=== PATIENT | female | born 1940 | race Caucasian/White ===

== ENCOUNTER 2019-03-28 14:38 | Emergency (ER) | payer MEDICARE ==
--- NOTE | 2019-03-28 14:55 | ED ---
Laceration/Wound HPI - HPI Summary HPI Summary: This patient is a 78 year old female presenting to [facility] with a chief complaint of head laceration after the fall. She states she was reaching over to get her walker when she fell and hit her head on a night stand. EMS states it caused a laceration to the parietal/occipital region in the back of the had, which was actively bleeding and they were able to control it. She reports headache. She rates her pain 8/10 in severity. She is not on blood thinners. - History of Current Complaint Stated Complaint: FALL HEAD INJURY Time Seen by Provider: 03/28/19 14:48 Hx Obtained From: Patient, EMS Hx Last Menstrual Period: N/A Mechanism of Injury: Sharp/Blunt Trauma Onset/Duration: Lasting Minutes Pain Intensity: 8 Pain Scale Used: 0-10 Numeric - Additional Pertinent History Primary Care Physician: JULISSA - Allergy/Home Medications Allergies/Adverse Reactions: Allergies Allergy/AdvReac Type Severity Reaction Status Date / Time No Known Allergies Allergy Verified 12/14/15 09:34 PMH/Surg Hx/FS Hx/Imm Hx Endocrine/Hematology History: Reports: Hx Anticoagulant Therapy, Hx Diabetes, Hx Thyroid Disease Cardiovascular History: Reports: Hx Angina, Hx Auto Implanted Cardiovert Defib, Hx Embolism - Bilateral PE's, Hx Hypercholesterolemia, Hx Hypertension, Hx Pacemaker/ICD, Other Cardiovascular Problems/Disorders - CHOLESTEROL CONTROL WITH MEDS Denies: Hx Coronary Artery Disease, Hx Myocardial Infarction, Hx Valvular Heart Disease Respiratory History: Reports: Hx Pneumonia, Hx Pulmonary Embolism Denies: Hx Asthma, Hx Chronic Obstructive Pulmonary Disease (COPD) GI History: Reports: Hx Gastroesophageal Reflux Disease History: Reports: Hx Kidney Infection - HX OF, Hx Kidney Stones, Hx Renal Disease - STONES, Other Problems/Disorders - bladder surgery Musculoskeletal History: Reports: Hx Arthritis, Hx Back Problems, Hx Orthopedic Injury - left knee replacement, Other Musculoskeletal History - right knee replacement Sensory History: Reports: Hx Contacts or Glasses Denies: Hx Hearing Aid Opthamlomology History: Reports: Hx Contacts or Glasses Psychiatric History: Reports: Hx Depression - Cancer History Hx Chemotherapy: No Hx Radiation Therapy: No - Surgical History Surgery Procedure, Year, and Place: PACEMAKER 2011, KNEE SURGERY 2006- BILATERAL , HYSTERECTOMY, BLADDER Hx Anesthesia Reactions: No - Immunization History Date of Influenza Vaccine: 2012 Infectious Disease History: No Infectious Disease History: Denies: Traveled Outside the [place] in Last 30 Days - Family History Known Family History: Positive: Unknown, Diabetes - Social History Alcohol Use: None Hx Substance Use: No Substance Use Type: Reports: None Hx Tobacco Use: No Smoking Status (MU): Never Smoked Tobacco Have You Smoked in the Last Year: No Review of Systems Negative: Fever Positive: Other - Head laceration Positive: Headache All Other Systems Reviewed And Are Negative: Yes Physical Exam - Summary Physical Exam Summary: VITAL SIGNS: Reviewed. GENERAL: Patient is a well-developed and nourished FEMALE who is lying comfortable in the stretcher. Patient is not in any acute respiratory distress. HEAD AND FACE: No signs of trauma. No ecchymosis, hematomas or skull depressions. No sinus tenderness. EYES: PERRLA, EOMI x 2, No injected conjunctiva, no nystagmus. EARS: Hearing grossly intact. Ear canals and tympanic membranes are within normal limits. MOUTH: Oropharynx within normal limits. NECK: Supple, trachea is midline, no adenopathy, no JVD, no carotid bruit, no c- spine tenderness, neck with full ROM. CHEST: Symmetric, no tenderness at palpation. LUNGS: Clear to auscultation bilaterally. No wheezing or crackles. CVS: Regular rate and rhythm, S1 and S2 present, no murmurs or gallops appreciated. ABDOMEN: Soft, non-tender. No signs of distention. No rebound, no guarding, and no masses palpated. Bowel sounds are normal. EXTREMITIES: FROM in all major joints, no edema, no cyanosis or clubbing. NEURO: Alert and oriented x 3. No acute neurological deficits. Speech is normal and follows commands. SKIN: Dry and warm. 3.5 cm head laceration in the occipital region. Triage Information Reviewed: Yes Vital Signs On Initial Exam: Initial Vitals Temp Pulse Resp BP Pulse Ox 97.9 F 90 16 160/92 94 03/28/19 14:46 03/28/19 14:46 03/28/19 14:46 03/28/19 14:46 03/28/19 14:46 Vital Signs Reviewed: Yes Procedures - Sedation Patient Received Moderate/Deep Sedation with Procedure: No - Laceration/Wound Repair 1 Location: head Length, Depth and Shape: 3.5 cm Closure: Michael #__ - 10 Diagnostics - Vital Signs Vital Signs Temp Pulse Resp BP Pulse Ox 03/28/19 14:46 97.9 F 90 16 160/92 94 - Laboratory Lab Statement: Any lab studies that have been ordered have been reviewed, and results considered in the medical decision making process. - CT Brain CT Interpretation Completed By: Radiologist Summary of CT Findings: No acute intracranial abnormality. ED Provider has reviewed this report. Laceration Repair Course/Dx - Course Assessment/Plan: This patient is a 78 year old female presenting to [facility] with a chief complaint of head laceration after the fall. She states she was reaching over to get her walker when she fell and hit her head on a night stand. EMS states it caused a laceration to the parietal/occipital region in the back of the had, which was actively bleeding and they were able to control it. She reports headache. She rates her pain 8/10 in severity. She is not on blood thinners. Head CT IMPRESSION: No CT evidence of acute intracranial abnormality, traumatic or otherwise.. Laceration was repaired. No complications. Tetanus booster was given. At this point, I discussed all the findings and test results with the patient. Patient was instructed to return to the emergency room immediately if any of the symptoms return or worsen. Patient understands and agrees. Neurological exam before discharge: Patient is alert and oriented x 3. No acute neurological deficits. Patient's vital signs are stable. Patient is to follow up with CPP in the next 2 3 days. They understand and agree. The plan of care was discussed with the patient and patient understands and agrees with the plan of care. All questions were answered at patient satisfaction. There were no further complaints or concerns. - Clinical Impression Provider Diagnoses: Laceration of head Discharge ED - Sign-Out/Discharge Documenting (check all that apply): Patient Departure - Discharge - Discharge Plan Condition: Stable Disposition: HOME Patient Education Materials: Laceration (ED) Referrals: Johnny Eddy MD [Primary Care Provider] - Additional Instructions: Get your michael removed in 7-10 days. Do not take a shower for 48 hours. - Billing Disposition and Condition Condition: STABLE Disposition: Home - Attestation Statements Document Initiated by Scribe: Yes Documenting Scribe: Louis Saleh Provider For Whom Scribe is Documenting (Include Credential): Jones Boyd MD Scribe Attestation: Louis Ku, scribed for Jones Boyd MD on 03/28/19 at 1833. Scribe Documentation Reviewed: Yes Provider Attestation: The documentation as recorded by the scribe, Louis Saleh accurately reflects the service I personally performed and the decisions made by me, Jones Boyd MD Status of Scribe Document: Viewed
[2019-03-28] MEDS ORDERED: Tetan/Diph/Pertus SYR(Tdap)* 0.5 ML SYR(BOOSTRIX) use SYR contains LATEX IM ONE (15:01)
--- OUTSIDE RECORDS SUMMARY | 2019-03-28 15:30 | XMS REPORT | Continuity of Care Document ---
:1940 External Reference #:[id number] Author Name Rakel Case N.P. (transmitted by agent of provider Ayesha Fajardo) Address [address] [place] [address] Care Team Providers Name Role Phone Johnny Eddy MD - Family Medicine Care Team Information Soaker Hides Problems Active Problems Provider Date Complete atrioventricular block Nia Couch M.D. Onset: 05/11/2014 Cardiac pacemaker in situ Nia Couch M.D. Onset: 05/11/2014 Type 2 diabetes mellitus Nia Couch M.D. Onset: 05/11/2014 Paroxysmal supraventricular tachycardia Nia Couch M.D. Onset: 05/11/2014 Sinus node dysfunction Nia Couch M.D. Onset: 06/13/2018 Supraventricular premature beats Nia Couch M.D. Onset: 06/19/2016 Paroxysmal atrial fibrillation Nia Couch M.D. Onset: 06/19/2016 Social History Type Date Description Comments Sex Unknown Tobacco Use Start: Unknown Never Smoked Cigarettes Smoking Status Reviewed: 03/05/19 Never Smoked Cigarettes ETOH Use Denies alcohol use Tobacco Use Start: Unknown Patient has never smoked Recreational Drug Use Denies Drug Use Exercise Type/Frequency Exercises sporadically go for walks Allergies, Adverse Reactions, Alerts Description No Known Drug Allergies Medications Active Medications SIG Qnty Indications Ordering Date Provider Fenofibrate 1 tablet po at Johnny Eddy, 07/05/2017 160mg Tablets bedtime Magnesium one tab every 30tabs Charles Martell 07/26/2016 400mg Tablets day. Lucian Cantrell, [facility] Sotalol HCL 1 tab by mouth 180tabs I47.1 Nia Couch, 02/16/2016 80mg Tablets twice a day Lucian Pantoprazole Sodium 1 by mouth once 30tabs Angela Santana 03/05/2012 40mg a day Lucian Ambrosio DR Levothyroxine Sodium 1 by mouth every 90tabs Unknown day 112mcg Tablets Tylenol OTC 325mg 1 tablet Unknown po prn Farxiga 1 by mouth every 30tabs Unknown 10mg Tablets day Glipizide take 1 po three Unknown 5mg Tablets times daily Gabapentin take 1 capsule Unknown 100mg Capsules by mouth twice a day Meclizine HCL 1 po bid Johnny Eddy, 12.5mg MD Tablets Metformin HCL ER 2 po daily Johnny Eddy, 500mg MD Tablets ER 24HR Celecoxib 1 cap po daily Johnny Eddy, 200mg Capsules Am Medications Administered in Office Medication SIG Qnty Indications Ordering Provider Date Inj, Regadenoson, 0.1 MG Rubén Cramer M.D. 09/11/2013 Injection Technetium TC 99M Tetrofosmin, Rubén Cramer M.D. 09/11/2013 Per Unit Dose Up To 40 Millicuries Injection Immunizations Description No Information Available Vital Signs Date Vital Result Comment 03/05/2019 11:14am Height 64.5 inches 5'4.50" Heart Rate 84 /min L radial BP Systolic 125 mmHg L arm, large cuff BP Diastolic 85 mmHg L arm, large cuff BP Systolic Standing 110 mmHg L arm, large cuff BP Diastolic Standing 90 mmHg L arm, large cuff Respiratory Rate 16 /min Ejection Fraction 55-60% 07/26/2014 06/13/2018 12:52pm Height 64.5 inches 5'4.50" Weight 198.00 lb with shoes BP Systolic Sitting 130 mmHg Lue reg cuff BP Diastolic Sitting 88 mmHg Lue reg cuff BP Systolic Standing 130 mmHg Lue reg cuff BP Diastolic Standing 90 mmHg Lue reg cuff BMI (Body Mass Index) 33.5 kg/m2 Results Description No Information Available Procedures Date Code Description Status 03/05/2019 60152 Pace Maker Migel W/Iterative Adjment Dual Lead Completed 03/05/2019 06967 EKG Tracing & Interpretation Completed Medical Devices Description No Information Available Encounters Description No Information Available Assessments Date Code Description Provider 03/05/2019 I49.5 Sick sinus syndrome Rakel Case N.P. 03/05/2019 I49.5 Sick sinus syndrome Ica Pacer Schedule 03/05/2019 Z95.0 Presence of cardiac pacemaker Rakel Case N.P. 03/05/2019 Z95.0 Presence of cardiac pacemaker Ica Pacer Schedule 03/05/2019 I44.2 Atrioventricular block, complete Rakel Case N.P. 03/05/2019 I48.0 Paroxysmal atrial fibrillation Rakel Case N.P. 03/05/2019 R01.1 Cardiac murmur, unspecified Rakel Case N.P. Plan of Treatment Future Appointment(s):09/15/2019 11:15 am - Nia Couch M.D. at [facility]09/15/2019 10:30 am - Ica Pacer Schedule at [facility]03/16/2019 10:00 am - Traveling ECHO 2 at [facility]2018 - Rakel Case N.P.I49.5 Sick sinus [id number] Presence of cardiac pacemakerRecommendations:You have 5 years left on your pacemaker.I44.2 Atrioventricular block, [id number] Paroxysmal atrial fibrillationFollow up: OV 6mo LS w/ PO priorRecommendations:You are in the regular rhythm and no episodes of afib on your pacemaker. Continue sotalol. No bloodthinner because of falls. Triglycerides have improved but are still elevated at 197. Try to decrease carbohydrates in your diet. LDL cholesterol looks good for primary prevention.R01.1 Cardiac murmur, unspecifiedNew Orders:Echocardiogram, Ordered: 03/05/19Recommendations:We will call with echo results. Functional Status Description No Information Available Mental Status Description No Information Available Referrals Description No Information Available
--- OUTSIDE RECORDS SUMMARY | 2019-03-28 15:30 | XMS REPORT ---
:1940 Author Organization [facility] Care Team Providers Name Role Phone Unavailable Unavailable Unavailable Problems Condition Condition Condition Status Onset Resolution Last Treating Comments Name Details Category Date Date Treatment Clinician Date Pain frequent Pain Mgmt Active Adeline pain 07-11 (Darlene) 08:30: Blackmon [id number] Respiratory dyspnea Respirator Active Adeline present y 07-11 (Darlene) 08:30: Blackmon [id number] Endo/Marcello glucose Endo/Marcello Active Adeline testing 07-11 (Darlene) dependence 08:30: [id number] Endo/Marcello diabetic Endo/Marcello Active Adeline foot care 07-11 (Darlene) 08:30: Blackmon [id number] Endo/Marcello anti-coagul Endo/Marcello Active Adeline ation 07-11 (Darlene) therapy 08:30: Blackmon [id number] Sensory impaired Sensory Active Adeline hearing 07-11 (Darlene) 08:30: Blackmon [id number] Integument skin Integument Active Adeline integrity 07-11 (Darlene) risk 08:30: [id number] Nutrition nutritional Nutrition Resolve 2018-12-12 Adeline restriction d 07-11 10:13:00 (Darlene) s 08:30: Blackmon [id number] Elimination urinary Eliminatio Resolve 2018-12-12 Adeline incontinenc n d 07-11 10:13:00 (Darlene) e 08:30: Blackmon [id number] Neuro confusion Neuro/Emot Active Adeline present ion 07-11 (Darlene) 08:30: Blackmon [id number] Neuro depressive Neuro/Emot Active Adeline feelings ion 07-11 (Darlene) present 08:30: Blackmon [id number] Activity ADL Activity Active Adeline assistance 07-11 (Darlene) required 08:30: Blackmon [id number] Activity self-care Activity Active Adeline deficit 07-11 (Darlene) 08:30: Blackmon [id number] Safety fall risk Safety Resolve 2018-07-24 Adeline factor d 07-11 09:50:00 (Darlene) present 08:30: [id number] Safety risk for Safety Resolve 2018-07-24 Adeline hospitaliza d 07-11 09:50:00 (Darlene) tion 08:30: [id number] Safety can be left Safety Active Adeline alone for 07-11 (Darlene) only short 08:30: Blackmon [id number] Medication oral med Meds Active Adeline assistance 07-11 (Darlene) required 08:30: Blackmon [id number] Musculoskel transfer Musculoske Active Adeline etal assistance letal 07-11 (Darlene) required 08:30: Blackmon [id number] Musculoskel requires Musculoske Active Adeline etal human letal 07-11 (Darlene) assist to 08:30: Blackmon leave home [id number] Diagnoses knowledge/s Diagnoses Active Obdulio leggett 07-11 Mihai deficit: pt 13:00: [id number] ROM ROM PT: ROM Resolve 2018-07-24 Obdulio deficit: LE d 07-11 09:50:00 Mihai 13:00: [id number] ROM knowledge/s PT: ROM Resolve 2018-07-24 Obdulio kill d 07-11 09:50:00 Mihai deficit LE: 13:00: [id number] pt 00 Bed mobility/tr PT/OT: Bed Resolve 2018-07-24 bOdulio Mobility/Tr ansfer Mobility/T d 07-11 09:50:00 Mihai saldanafer device ransfer 13:00: [id number] present 00 Balance/End balance/operations manager/coordinator PT/OT: Resolve 2018-07-24 Obdulio urance rdination Balance/En d 07-11 09:50:00 Kobziewicz deficit durance 13:00: [id number] OT: Self self-care OT: Resolve 2018-07-24 Obdulio Care deficit Self-Care d 07-11 09:50:00 Mihai 13:00: [id number] 00 Gait/Locomo gait PT/OT: Resolve 2018-07-24 Obdulio tion assistive Gait/Locom d 07-11 09:50:00 Mihai problems device otion 13:00: [id number] present 00 Gait/Locomo gait PT/OT: Resolve 2018-07-24 Obdulio tion deficit Gait/Locom d 07-11 09:50:00 Kobkingaewicz problems otion 13:00: [id number] Safety risk for Safety [facility] Gato tion 10:30: [id number] 00 Elimination diarrhea Eliminatio Resolve 2018-12-12 Khloe n d 723 10:13:00 [place] 15:15: [id number] Medication knowledge/s Meds Active Leonora leggett 8-16 [facility] deficit: cg 10:00: e 00 [id number] Elimination urinary Eliminatio Resolve 2018-042019-02-06 Sylvia incontinenc n d 0-01 12:18:00 Saucedo e 13:00: [id number] 00 Safety fall risk Safety Active 2018-04 Sylvia factor 0- Saucedo present 13:00: [id number] 00 Allergies, Adverse Reactions, Alerts Allergy Allergy Status Severity Reaction(s) Onset Inactive Treating Comments Name Type Date Date Clinician Unknown None Active Unknown None Unknown No Known Allergies For This Patient Medications Ordered Filled Start Stop Current Ordering Indication Dosage Frequency Signature Comments Components Medication Medication Date Date Medication? Clinician (SIG) Name Name levothyroxi levothyroxi 2018- No Breiman Unknown Unknown ne 112 mcg ne 112 mcg 07-11 Johnny PAZ capsule capsule pantoprazol pantoprazol No Breiman Unknown Unknown e 40 mg e 40 mg 07-11 Johnny PAZ tablet,aurelia tablet,aurelia yed release yed release metFORMIN metFORMIN 2018- No Breiman Unknown Unknown 500 mg 500 mg 07-11 Johnny PAZ tablet tablet fenofibrate fenofibrate 2018- No Breiman Unknown Unknown 160 mg 160 mg 07-11 ,Johnny tablet tablet magnesium magnesium 2018- No Breiman Unknown Unknown oxide 400 oxide 400 07-11 Johnny PAZ mg (241.3 mg (241.3 mg mg magnesium) magnesium) tablet tablet Glucotrol 5 Glucotrol 5 2018- No Breiman Unknown Unknown mg tablet mg tablet 07-11 Johnny PAZ sotalol 80 sotalol 80 2018- No Wagoner Unknown Unknown mg tablet mg tablet 07-11 Nia PAZ gabapentin gabapentin No Breiman Unknown Unknown 100 mg 100 mg 07-11 Johnny PAZ capsule capsule meclizine meclizine No Breiman Unknown Unknown 12.5 mg 12.5 mg 07-11 Johnny PAZ tablet tablet Farxiga 10 Farxiga 10 No Breiman Unknown Unknown mg tablet mg tablet 07-11 Johnny PAZ celecoxib celecoxib No Breiman Unknown Unknown 200 mg 200 mg 07-11 Johnny PAZ capsule capsule sotalol 80 sotalol 80 No Wagoner Unknown Unknown mg tablet mg tablet 07-11 Nia PAZ levothyroxi levothyroxi No Breiman Unknown Unknown ne 125 mcg ne 125 mcg 08-11 Johnny PAZ tablet tablet metFORMIN metFORMIN 2018- No Breiman Unknown Unknown 500 mg 500 mg 08-11 Johnny PAZ tablet tablet fenofibrate fenofibrate No Breiman Unknown Unknown 160 mg 160 mg 08-11 Johnny PAZ tablet tablet magnesium magnesium No Breiman Unknown Unknown 400 mg (as 400 mg (as 08-11 Johnny PAZ magnesium magnesium oxide) oxide) capsule capsule Glucotrol 5 Glucotrol 5 No Breiman Unknown Unknown mg tablet mg tablet 08-11 Johnny PAZ Pepto-Bismo Pepto-Bismo No Breiman Unknown Unknown l 262 mg l 262 mg 11-04 Johnny PAZ tablet tablet metFORMIN metFORMIN 2018- Yes Breiman Unknown Unknown 500 mg 500 mg 01-12 Johnny PAZ tablet tablet metFORMIN metFORMIN Yes Breiman Unknown Unknown 500 mg 500 mg 01-12 Johnny PZA tablet tablet Vital Signs Vital Name Observation Time Observation Value Comments SYSTOLIC mm[Hg] 2019-02-06 18:08:31 118 mm[Hg] mm[Hg] Method: Sit SYSTOLIC mm[Hg] 2018-07-11 18:05:01 122 mm[Hg] mm[Hg] Method: Stand DIASTOLIC mm[Hg] 2019-02-06 18:08:31 84 mm[Hg] mm[Hg] Method: Sit DIASTOLIC mm[Hg] 2018-07-11 18:05:01 82 mm[Hg] mm[Hg] Method: Stand PULSE 2019-02-06 18:08:31 82 /min /min RESP RATE 2019-02-06 18:08:31 18 /min /min TEMP 2019-02-06 18:08:31 99.0 [degF] Procedures This patient has no known procedures. Results This patient has no known results.
--- OUTSIDE RECORDS SUMMARY | 2019-03-28 15:30 | XMS REPORT ---
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 08:30: [id number] Endo/Marcello diabetic Endo/Marcello Active Adeline foot care 07-11 (Darlene) 08:30: Blackmon [id number] Endo/Marcello anti-coagul Endo/Marcello Active Adeline ation 07-11 (Darlene) therapy 08:30: Blackmon [id number] Sensory impaired Sensory Active Adeline hearing 07-11 (Darlene) 08:30: Blackmon [id number] Integument skin Integument Active Adeline integrity 07-11 (Darlene) risk 08:30: [id number] Nutrition nutritional Nutrition Resolve 2018-12-12 Adeline restriction d 07-11 10:13:00 (Darlene) s 08:30: Blackmon [id number] Elimination urinary Eliminatio Resolve 2018-12-12 Adeline incontinenc n d 07-11 10:13:00 (Darlene) e 08:30: Blackmon [id number] Neuro confusion Neuro/Emot Active Adeline present ion 07-11 (Darlene) 08:30: Blackmon [id number] Neuro depressive Neuro/Emot Active Adeline feelings ion 07-11 (Darlene) present 08:30: Blackmon [id number] Activity ADL Activity Active Adeline assistance 07-11 (Darlene) required 08:30: Blackmon [id number] Activity self-care Activity Active Adeline deficit 07-11 (Darlene) 08:30: Blackmon [id number] Safety fall risk Safety Resolve 2018-07-24 Adeline factor d 07-11 09:50:00 (Darlene) present 08:30: [id number] Safety risk for Safety Resolve 2018-07-24 Adeline hospitaliza d 07-11 09:50:00 (Darlene) tion 08:30: [id number] Safety can be left Safety Active Adeline alone for 07-11 (Darlene) only short 08:30: Blackmon [id number] Medication oral med Meds Active Adeline assistance 07-11 (Darlene) required 08:30: Blackmon [id number] Musculoskel transfer Musculoske Active Adeline etal assistance letal 07-11 (Darlene) required 08:30: Blackmon [id number] Musculoskel requires Musculoske Active Adeline etal human letal 07-11 (Darlene) assist to 08:30: Blackmon leave home [id number] Diagnoses knowledge/s Diagnoses Active Obdulio leggett 07-11 Mihai deficit: pt 13:00: [id number] ROM ROM PT: ROM Resolve 2018-07-24 Obdulio deficit: LE d 07-11 09:50:00 Mihai 13:00: [id number] 00 ROM knowledge/s PT: ROM Resolve 2018-07-24 Obdulio kill d 07-11 09:50:00 Mihai deficit LE: 13:00: [id number] pt 00 Bed mobility/tr PT/OT: Bed Resolve 2018-07-24 Obdulio Mobility/Tr ansfer Mobility/T d 07-11 09:50:00 Mihai saldanafer device ransfer 13:00: [id number] present 00 Balance/End balance/school community relations coordinator PT/OT: Resolve 2018-07-24 Obdulio urance rdination Balance/En d 07-11 09:50:00 Mihai deficit durance 13:00: [id number] 00 OT: Self self-care OT: Resolve 2018-07-24 Obdulio Care deficit Self-Care d 07-11 09:50:00 Mihai 13:00: [id number] Gait/Locomo gait PT/OT: Resolve 2018-07-24 Obdulio tion assistive Gait/Locom d 07-11 09:50:00 Mihai problems device otion 13:00: [id number] present 00 Gait/Locomo gait PT/OT: Resolve 2018-07-24 Obdulio tion deficit Gait/Locom d 07-11 09:50:00 [place] problems otion 13:00: [id number] Safety risk for Safety Active Khloe salinas 07-25 Gato tion 10:30: [id number] 00 Elimination diarrhea Eliminatio Resolve 2018-12-12 Khloe marcus 7 10:13:00 [place] 15:15: [id number] 00 Medication knowledge/s Meds Active Leonora leggett [facility] deficit: cg 10:00: e 00 [id number] Elimination urinary Eliminatio Resolve 2018-042019-02-06 Sylvia incontinenc n d 0- 12:18:00 [place] e 13:00: [id number] 00 Safety fall risk Safety Active 2018-04 Sylvia factor 0- Saucedo present 13:00: [id number] 00 Elimination urinary Eliminatio Active 2018-04 Khloe incontinenc n -08 Matthew e 12:00: [facility] 00 [id number] Allergies, Adverse Reactions, Alerts Allergy Allergy Status [...] 07-11 Johnny PAZ capsule capsule pantoprazol pantoprazol 2018- No Breiman Unknown Unknown e 40 mg e 40 mg 07-11 Johnny PAZ tablet,aurelia tablet,aurelia yed release yed release metFORMIN metFORMIN 2018- No Breiman Unknown Unknown 500 mg 500 mg 07-11 Johnny PAZ tablet tablet fenofibrate fenofibrate 2018- No Breiman Unknown Unknown 160 mg 160 mg 07-11 Johnny PAZ tablet tablet magnesium magnesium 2018- No Breiman Unknown Unknown oxide 400 oxide 400 07-11 Johnny PZA mg (241.3 mg (241.3 mg mg magnesium) magnesium) tablet tablet Glucotrol 5 Glucotrol 5 2018- No Breiman Unknown Unknown mg tablet mg tablet 07-11 Johnny PAZ sotalol 80 sotalol 80 2018- No Iza Unknown Unknown mg tablet mg tablet 07-11 Nia PAZ gabapentin gabapentin 2018- No Breiman Unknown Unknown 100 mg 100 mg 07-11 Johnny PAZ capsule capsule meclizine meclizine 2018- No Breiman Unknown Unknown 12.5 mg 12.5 mg 07-11 oJhnny PAZ tablet tablet Farxiga 10 Farxiga 10 2019- No Breiman Unknown Unknown mg tablet mg tablet 07-11 Johnny PAZ celecoxib celecoxib 2018- No Breiman Unknown Unknown 200 mg 200 mg 07-11 Johnny PAZ capsule capsule sotalol 80 sotalol 80 2018- No [place] Unknown Unknown mg tablet mg tablet 07-11 Nia PAZ levothyroxi levothyroxi 2018- No Breiman Unknown Unknown ne 125 mcg ne 125 mcg 08-11 Johnny PAZ tablet tablet metFORMIN metFORMIN 2018- No Breiman Unknown Unknown 500 mg 500 mg 08-11 Johnny PAZ tablet tablet fenofibrate fenofibrate 2018- No Breiman Unknown Unknown 160 mg 160 mg 08-11 Johnny PAZ tablet tablet magnesium magnesium 2018- No Breiman Unknown Unknown 400 mg (as 400 mg (as 08-11 Johnny PAZ magnesium magnesium oxide) oxide) capsule capsule Glucotrol 5 Glucotrol 5 2018- No Breiman Unknown Unknown mg tablet mg tablet 08-11 Johnny PAZ Pepto-Bismo Pepto-Bismo 2018- No Breiman Unknown Unknown l 262 mg l 262 mg 11-04 Johnny PAZ tablet tablet metFORMIN metFORMIN 2018- Yes Breiman Unknown Unknown 500 mg 500 mg 01-12 Johnny PAZ tablet tablet metFORMIN metFORMIN 2018- Yes Breiman Unknown Unknown 500 mg 500 mg 01-12 Johnny PAZ tablet tablet Vital Signs Vital Name Observation Time Observation Value Comments SYSTOLIC mm[Hg] 2019-03-06 18:08:59 134 mm[Hg] mm[Hg] Method: Sit SYSTOLIC mm[Hg] 2018-07-11 18:05:01 122 mm[Hg] mm[Hg] Method: Stand DIASTOLIC mm[Hg] 2019-03-06 18:08:59 66 mm[Hg] mm[Hg] Method: Sit DIASTOLIC mm[Hg] 2018-07-11 18:05:01 82 mm[Hg] mm[Hg] Method: Stand PULSE 2019-03-06 18:08:59 78 /min /min RESP RATE 2019-03-06 18:08:59 18 /min /min TEMP 2019-03-06 18:08:59 98.2 [degF] Procedures This patient has no known procedures. Results This patient has no known results.
--- OUTSIDE RECORDS SUMMARY | 2019-03-28 15:30 | XMS REPORT ---
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 08:30: [id number] Endo/Marcello diabetic Endo/Marcello Active Adeline foot care 07-11 (Darlene) 08:30: [id number] Endo/Marcello anti-coagul Endo/Marcello Active Adeline ation 07-11 (Darlene) therapy 08:30: Blackmon [id number] Sensory impaired Sensory Active Adeline hearing 07-11 (Darlene) 08:30: Blackmon [id number] Integument skin Integument Active Adeline integrity 07-11 (Darlene) risk 08:30: [id number] Nutrition nutritional Nutrition Resolve 2018-12-12 Adeline restriction d 07-11 10:13:00 (Darlene) s 08:30: Blackmon [id number] Elimination urinary Eliminatio Resolve 2018-12-12 Adeline incontinenc n d 07-11 10:13:00 (Darlene) e 08:30: Blackmon [id number] Neuro confusion Neuro/Emot Active Adeline present ion 07-11 (Darlene) 08:30: Blackmon [id number] Neuro depressive Neuro/Emot Active Adeline feelings ion 07-11 (Darlene) present 08:30: Blackmon [id number] Activity ADL Activity Active Adeline assistance 07-11 (Darlene) required 08:30: Blackmon [id number] Activity self-care Activity Active Adeline deficit 07-11 (Darlene) 08:30: Blackmon [id number] Safety fall risk Safety Resolve 2018-07-24 Adeline factor d 07-11 09:50:00 (Darlene) present 08:30: [id number] Safety risk for Safety Resolve 2018-07-24 Adeline hospitaliza d 07-11 09:50:00 (Darlene) tion 08:30: [id number] Safety can be left Safety Active Adeline alone for 07-11 (Darlene) only short 08:30: Blackmon [id number] Medication oral med Meds Active Adeline assistance 07-11 (Darlene) required 08:30: Blackmon [id number] Musculoskel transfer Musculoske Active Adeline etal assistance letal 07-11 (Darlene) required 08:30: Blackmon [id number] Musculoskel requires Musculoske Active Adeline etal human letal 07-11 (Darlene) assist to 08:30: Blackmon leave home [id number] Diagnoses knowledge/s Diagnoses Active Obdulio leggett 07-11 Mihai deficit: pt 13:00: [id number] 00 ROM ROM PT: ROM Resolve 2018-07-24 Obdulio deficit: LE d 07-11 09:50:00 Mihai 13:00: [id number] 00 ROM knowledge/s PT: ROM Resolve 2018-07-24 Obdulio kill d 07-11 09:50:00 Mihai deficit LE: 13:00: [id number] pt 00 Bed mobility/tr PT/OT: Bed Resolve 2018-07-24 Obdulio Mobility/Tr ansfer Mobility/T d 07-11 09:50:00 Mihai saldanafer device ransfer 13:00: [id number] present 00 Balance/End balance/clinical coordinator PT/OT: Resolve 2018-07-24 Obdulio urance rdination Balance/En d 07-11 09:50:00 Mihai deficit durance 13:00: [id number] 00 OT: Self self-care OT: Resolve 2018-07-24 Obdulio Care deficit Self-Care d 07-11 09:50:00 Mihai 13:00: [id number] 00 Gait/Locomo gait PT/OT: Resolve 2018-07-24 Obdulio tion assistive Gait/Locom d 07-11 09:50:00 Mihai problems device otion 13:00: [id number] present 00 Gait/Locomo gait PT/OT: Resolve 2018-07-24 Obdulio tion deficit Gait/Locom d 07-11 09:50:00 [place] problems otion 13:00: [id number] Safety risk for Safety Active Khloe salinas 12 Gato tion 10:30: [id number] 00 Elimination diarrhea Eliminatio Resolve 2018-12-12 Khloe acuna d 7-23 10:13:00 [place] 15:15: [id number] 00 Medication knowledge/s Meds Active Leonora leggett [facility] deficit: cg 10:00: e 00 [id number] Elimination urinary Eliminatio Resolve 2018-042019-02-06 Sylvia incontinenc n d 0- 12:18:00 Sau[place]o e 13:00: [id number] 00 Safety fall risk Safety Active 2018-04 Sylvia factor 0- Saucedo present 13:00: [id number] 00 Elimination urinary Eliminatio Active 2018-04 Khloe incontinenc n -08 Matthew e 12:00: [facility] 00 [id number] Allergies, Adverse Reactions, Alerts Allergy Allergy Status Severity Reaction(s) Onset Inactive Treating Comments Name Type Date Date Clinician Unknown None Active Unknown None Unknown No Known Allergies For This Patient Medications Ordered Filled Start Stop Current Ordering Indication Dosage Frequency Signature Comments Components Medication Medication Date Date Medication? Clinician (SIG) Name Name levothyroxi levothyroxi 2019- No Breiman Unknown Unknown ne 112 mcg [...] capsule capsule sotalol 80 sotalol 80 No [place] Unknown Unknown mg tablet mg tablet 07-11 [...] 11-04 Johnny PAZ tablet tablet metFORMIN metFORMIN 2019-0 2019- Yes Breiman Unknown Unknown 500 mg 500 mg 01-12 Johnny PAZ tablet tablet metFORMIN metFORMIN Yes Breiman Unknown Unknown 500 mg 500 mg 01-12 ,Johnny tablet tablet Vital Signs Vital Name Observation Time Observation Value Comments SYSTOLIC mm[Hg] 2019-03-01 18:08:54 112 mm[Hg] mm[Hg] Method: Sit SYSTOLIC mm[Hg] 2018-07-11 18:05:01 122 mm[Hg] mm[Hg] Method: Stand DIASTOLIC mm[Hg] 2019-03-01 18:08:54 74 mm[Hg] mm[Hg] Method: Sit DIASTOLIC mm[Hg] 2018-07-11 18:05:01 82 mm[Hg] mm[Hg] Method: Stand PULSE 2019-03-01 18:08:54 84 /min /min RESP RATE 2019-03-01 18:08:54 18 /min /min TEMP 2019-03-01 18:08:54 98.6 [degF] Procedures This patient has no known procedures. Results This patient has no known results.
--- OUTSIDE RECORDS SUMMARY | 2019-03-28 15:30 | XMS REPORT ---
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 08:30: [id number] Endo/Marcello diabetic Endo/Marcello Active Adeline foot care 07-11 (Darlene) 08:30: [id number] Endo/Marcello anti-coagul Endo/Marcello Active Adeline ation 07-11 (Darlene) therapy 08:30: Blackmon [id number] Sensory impaired Sensory Active Adeline hearing 07-11 (Darlene) 08:30: Blackmon [id number] Integument skin Integument Active Adeline integrity 07-11 (Darlene) risk 08:30: [id number] Nutrition nutritional Nutrition Resolve 2018-12-12 Adeline restriction d 07-11 10:13:00 (Darlene) s 08:30: Blackmon [id number] Elimination urinary Eliminatio Resolve 2018-12-12 Adeline incontinenc n d 07-11 10:13:00 (Darlene) e 08:30: Blackmon [id number] Neuro confusion Neuro/Emot Active Adeline present ion 07-11 (Darlene) 08:30: Blackmon [id number] Neuro depressive Neuro/Emot Active Adeline feelings ion 07-11 (Darlene) present 08:30: Blackmon [id number] Activity ADL Activity Active Adeline assistance 07-11 (Darlene) required 08:30: Blackmon [id number] Activity self-care Activity Active Adeline deficit 07-11 (Darlene) 08:30: Blackmon [id number] Safety fall risk Safety Resolve 2018-07-24 Adeline factor d 07-11 09:50:00 (Darlene) present 08:30: [id number] Safety risk for Safety Resolve 2018-07-24 Adeline hospitaliza d 07-11 09:50:00 (Darlene) tion 08:30: [id number] Safety can be left Safety Active Adeline alone for 07-11 (Darlene) only short 08:30: Blackmon [id number] Medication oral med Meds Active Adeline assistance 07-11 (Darlene) required 08:30: Blackmon [id number] Musculoskel transfer Musculoske Active Adeline etal assistance letal 07-11 (Darlene) required 08:30: Blackmon [id number] Musculoskel requires Musculoske Active Adeline etal human letal 07-11 (Darlene) assist to 08:30: Blackmon leave home [id number] Diagnoses knowledge/s Diagnoses Active Obdulio leggett 07-11 Mihai deficit: pt 13:00: [id number] ROM ROM PT: ROM Resolve 2018-07-24 Obdulio deficit: LE d 07-11 09:50:00 Mihai 13:00: [id number] 00 ROM knowledge/s PT: ROM Resolve 2018-07-24 Obdulio kill d 07-11 09:50:00 Mihai deficit LE: 13:00: [id number] pt 00 Bed mobility/tr PT/OT: Bed Resolve 2018-07-24 Obdulio Mobility/Tr ansfer Mobility/T d 07-11 09:50:00 Mihai saldanafer device ransfer 13:00: [id number] present 00 Balance/End balance/wedding coordinator PT/OT: Resolve 2018-07-24 Obdulio urance rdination Balance/En d 07-11 09:50:00 Mihai deficit durance 13:00: [id number] 00 OT: Self self-care OT: Resolve 2018-07-24 Obdulio Care deficit Self-Care d 07-11 09:50:00 Mihai 13:00: [id number] 00 Gait/Locomo gait PT/OT: Resolve 2018-07-24 Obdulio tion assistive Gait/Locom d 07-11 09:50:00 Mihai problems device otion 13:00: [id number] present 00 Gait/Locomo gait PT/OT: Resolve 2018-07-24 Obdulio tion deficit Gait/Locom d 07-11 09:50:00 [place] problems otion 13:00: [id number] 00 Safety risk for Safety Active Khloe salinas 07-25 Gato tion 10:30: [id number] 00 Elimination diarrhea Eliminatio Resolve 2018-12-12 Khloe marcus 7 10:13:00 [place] 15:15: [id number] 00 Medication knowledge/s Meds Active Leonora leggett 816 [facility] deficit: cg 10:00: e 00 [id number] Elimination urinary Eliminatio Resolve 2018-042019-02-06 Sylvia incontinenc n d 0- 12:18:00 Saucedo e 13:00: [id number] 00 Safety fall risk Safety Active 2018-04 Sylvia factor 0- Saucedo present 13:00: [id number] 00 Elimination urinary Eliminatio Active 2018-04 Khloe incontinenc n -08 Matthew e 12:00: [facility] 00 [id number] Allergies, Adverse Reactions, Alerts Allergy Allergy Status [...] capsule sotalol 80 sotalol 80 2018- No [place] Unknown Unknown mg tablet mg tablet 07-11 [...]
[2019-03-28] MEDS ORDERED: Lidocaine 2% w/ EPI 1:200,000* 20 ML SDV VIAL ONE (17:34)
[2019-03-28 18:03] VITALS: BP 153/91
== END 2019-03-28 18:00 | disposition home or self-care (01) ==
LOC: ED 14:38
DX: S01.91XA Laceration without foreign body of unspecified part of head, initial encounter (principal); W18.39XA Other fall on same level, initial encounter; Y92.002 Bathroom of unspecified non-institutional (private) residence as the place of occurrence of the external cause; E11.9 Type 2 diabetes mellitus without complications; E07.9 Disorder of thyroid, unspecified; E78.00 Pure hypercholesterolemia, unspecified; I10 Essential (primary) hypertension; K21.9 Gastro-esophageal reflux disease without esophagitis; F32.9 Major depressive disorder, single episode, unspecified; Z90.710 Acquired absence of both cervix and uterus; Z95.0 Presence of cardiac pacemaker; Z79.899 Other long term (current) drug therapy
CPT/HCPCS: 12013; 70450; 99282

== ENCOUNTER 2020-10-26 16:46 | Inpatient (IN) ==
[2020-10-27] MEDS ORDERED: Metoclopramide 5 MG/ML VIAL (10 mg) IV ONE (01:15)
[2020-10-27] MEDS ORDERED: Metoprolol Tartrate 5 mg VIAL 5 ml VIAL (1 mg/ml) IV ONE (01:18)
[2020-10-27] MEDS: Enoxaparin 40 MG/0.4 ML SYR SUBCUT SCH (01:29)
[2020-10-27 05:48] LABS: ABS Basophils 0.1 10^3/ul (0-0.2); ABS Eosinophils 0.2 10^3/ul (0-0.6); ABS Lymphocytes 1.7 10^3/ul (1.0-4.8); ABS Monocytes 0.8 10^3/ul (0-0.8); Eosinophil % 1.7 %; Hematocrit 39 % (35-47); Hemoglobin 13.9 g/dL (12.0-16.0); Lymphocyte % 15.8 %; Mean Corpuscular HGB Conc 35 g/dL (31-36); Mean Corpuscular Hemoglobin 33 pg (27-31); Mean Corpuscular Volume 93 fL (80-97); Mean Platelet Volume 8.9 fL (7.4-10.4); Nucleated Red Blood Cells % 0.1; Platelet Count 248 10^3/uL (150-450); Red Blood Count 4.25 10^6 /uL (3.70-4.87); Red Cell Distribution Width 13 % (10-15); White Blood Count 10.7 10^3/uL (3.5-10.8)
[2020-10-27 06:10] LABS: C Reactive Protein 26.08 mg/L (<8.01); Calcium 8.8 mg/dL (8.6-10.3); EGFR African American 114.8 (>60); EGFR Non-African American 94.9 (>60); Magnesium 1.7 mg/dL (1.9-2.7); Potassium 3.5 mmol/L (3.5-5.0)
[2020-10-27] MEDS: Nystatin TOP POWDER 15 GM BTL TOPICAL SCH ×2 (08:32→22:45)
[2020-10-27] MEDS ORDERED: SITAGLIPTIN 50 MG PO SCH (09:00)
[2020-10-27] MEDS: CMCS:SitaGLIPtin 25mg TAB (NF) 25 MG TAB PO SCH (12:00)
[2020-10-27] MEDS ORDERED: Potassium Chloride LIQUID 20 MEQ/15 ML LIQUID PO ONE (14:49)
[2020-10-27] MEDS ORDERED: Magnesium Sulfate 2 gm BAG 2 GM/50 ML BAG IVPB ONE (14:50)
[2020-10-27] MEDS: Digoxin IV 0.5 MG/2 ML AMP (0.25 MG/ML) IV SLOW PU SCH ×2 (18:37→22:32)
[2020-10-27] MEDS ORDERED: Potassium Chlor 10 meq TAB PO ONE (20:00)
[2020-10-28] MEDS: Digoxin IV 0.5 MG/2 ML AMP (0.25 MG/ML) IV SLOW PU SCH (02:01)
[2020-10-28 07:24] LABS: Calcium 9.2 mg/dL (8.6-10.3); EGFR African American 119.3 (>60); EGFR Non-African American 98.6 (>60); Magnesium 1.8 mg/dL (1.9-2.7); Potassium 4.4 mmol/L (3.5-5.0)
[2020-10-28 07:27] LABS: Digoxin 1.6 ng/ml (0.8-2.0)
[2020-10-28] MEDS ORDERED: Magnesium Sulfate 2 gm BAG 2 GM/50 ML BAG IVPB ONE (08:44)
[2020-10-28] MEDS ORDERED: guaiFENesin 100 mg/5 ml LIQ unit dose cup PO PRN (10:04)
[2020-10-28] MEDS: Enoxaparin 40 MG/0.4 ML SYR SUBCUT SCH (10:11)
[2020-10-28] MEDS: CMCS:SitaGLIPtin 25mg TAB (NF) 25 MG TAB PO SCH (10:12)
[2020-10-28] MEDS: Nystatin TOP POWDER 15 GM BTL TOPICAL SCH ×2 (10:14→20:45)
[2020-10-28 12:55] LABS: ABS Basophils 0.1 10^3/ul (0-0.2); ABS Eosinophils 0.1 10^3/ul (0-0.6); ABS Lymphocytes 0.9 10^3/ul (1.0-4.8); ABS Monocytes 1.4 10^3/ul (0-0.8); ABS Neutrophils 16.1 10^3/ul (1.5-7.7); Eosinophil % 0.4 %; Hematocrit 43 % (35-47); Hemoglobin 15.1 g/dL (12.0-16.0); Lymphocyte % 5.1 %; Mean Corpuscular HGB Conc 35 g/dL (31-36); Mean Corpuscular Hemoglobin 32 pg (27-31); Mean Corpuscular Volume 92 fL (80-97); Mean Platelet Volume 9.1 fL (7.4-10.4); Platelet Count 294 10^3/uL (150-450); Red Cell Distribution Width 13 % (10-15); White Blood Count 18.6 10^3/uL (3.5-10.8)
[2020-10-28] MEDS ORDERED: Piperacillin/Tazobac ADVAN 3.375 GM in NS 0.9% 100 ml BAG 100 ML IV ONE (13:33)
[2020-10-28 13:51] LABS: Activated Partial Thrombo Time 36.9 seconds (26.0-38.0); INR 1.11 (0.86-1.15)
[2020-10-28 13:58] LABS: Albumin 3.9 g/dL (3.2-5.2); Albumin/Globulin Ratio 1.6 (1-3); Calcium 9.2 mg/dL (8.6-10.3); EGFR African American 141.1 (>60); EGFR Non-African American 116.6 (>60); Globulin 2.5 g/dL (2-4); HDL Cholesterol 36.6 mg/dL; Potassium 4.4 mmol/L (3.5-5.0); Total Bilirubin 1.2 mg/dL (0.2-1.0); Total Protein 6.4 g/dL (6.4-8.9)
[2020-10-28 14:00] LABS: Troponin I 0.02 ng/mL (<0.03)
[2020-10-28] MEDS ORDERED: Zosyn per Pharmacy NOTE FOLLOW UP SCH (14:00)
[2020-10-28] MEDS ORDERED: cefTRIAXone 1 gm/50 mL NS BAG 1 GM/50 ML BAG IVPB SCH (14:00)
[2020-10-28 14:04] LABS: HCG Pregnancy 5.13 mIU/mL
[2020-10-28 15:12] LABS: Urine Appearance Cloudy; Urine Bilirubin Negative (Negative); Urine Blood Negative (Negative); Urine Color Yellow; Urine Glucose 3+(>=500 mg/dL) (Negative); Urine Ketones 1+ (Negative); Urine Nitrite Negative (Negative); Urine Protein Negative (Negative); Urine Specific Gravity 1.026 (1.002-1.030); Urine Urobilinogen Negative (Negative)
[2020-10-28] MEDS: ZOSYN 3.375 GM Q8H per EXTENDED INFUSION IV SCH (20:43)
[2020-10-29] MEDS: ZOSYN 3.375 GM Q8H per EXTENDED INFUSION IV SCH ×3 (04:25→21:10)
[2020-10-29 07:28] LABS: Calcium 8.5 mg/dL (8.6-10.3); EGFR African American 126.7 (>60); EGFR Non-African American 104.7 (>60)
[2020-10-29] MEDS: CMCS:SitaGLIPtin 25mg TAB (NF) 25 MG TAB PO SCH (08:26)
[2020-10-29] MEDS: Enoxaparin 40 MG/0.4 ML SYR SUBCUT SCH (08:28)
[2020-10-29 09:16] LABS: ABS Basophils 0.1 10^3/ul (0-0.2); ABS Eosinophils 0.2 10^3/ul (0-0.6); ABS Lymphocytes 1.5 10^3/ul (1.0-4.8); ABS Monocytes 0.9 10^3/ul (0-0.8); ABS Neutrophils 9.6 10^3/ul (1.5-7.7); Eosinophil % 1.7 %; Hematocrit 37 % (35-47); Hemoglobin 13.1 g/dL (12.0-16.0); Lymphocyte % 12.5 %; Mean Corpuscular HGB Conc 35 g/dL (31-36); Mean Corpuscular Hemoglobin 33 pg (27-31); Mean Corpuscular Volume 93 fL (80-97); Mean Platelet Volume 9.4 fL (7.4-10.4); Platelet Count 241 10^3/uL (150-450); Red Cell Distribution Width 13 % (10-15); White Blood Count 12.3 10^3/uL (3.5-10.8)
[2020-10-29] MEDS: Nystatin TOP POWDER 15 GM BTL TOPICAL SCH ×2 (10:24→21:28)
[2020-10-30] MEDS: ZOSYN 3.375 GM Q8H per EXTENDED INFUSION IV SCH ×3 (05:11→20:03)
[2020-10-30 05:37] LABS: Hematocrit 36 % (35-47); Hemoglobin 12.4 g/dL (12.0-16.0); Mean Corpuscular HGB Conc 35 g/dL (31-36); Mean Corpuscular Hemoglobin 32 pg (27-31); Mean Corpuscular Volume 93 fL (80-97); Mean Platelet Volume 8.9 fL (7.4-10.4); Platelet Count 229 10^3/uL (150-450); Red Blood Count 3.84 10^6 /uL (3.70-4.87); Red Cell Distribution Width 13 % (10-15); White Blood Count 11.5 10^3/uL (3.5-10.8)
[2020-10-30] MEDS: Enoxaparin 40 MG/0.4 ML SYR SUBCUT SCH (08:44)
[2020-10-30] MEDS: CMCS:SitaGLIPtin 25mg TAB (NF) 25 MG TAB PO SCH (08:46)
[2020-10-30] MEDS: Nystatin TOP POWDER 15 GM BTL TOPICAL SCH ×2 (08:47→21:59)
[2020-10-31] MEDS: cefTRIAXone 1 gm/50 mL NS BAG 1 GM/50 ML BAG IVPB SCH (03:40)
[2020-10-31 08:21] LABS: Hematocrit 38 % (35-47); Hemoglobin 13.3 g/dL (12.0-16.0); Mean Corpuscular HGB Conc 35 g/dL (31-36); Mean Corpuscular Hemoglobin 32 pg (27-31); Mean Corpuscular Volume 92 fL (80-97); Mean Platelet Volume 8.8 fL (7.4-10.4); Platelet Count 279 10^3/uL (150-450); Red Blood Count 4.11 10^6 /uL (3.70-4.87); Red Cell Distribution Width 13 % (10-15); White Blood Count 8.6 10^3/uL (3.5-10.8)
[2020-10-31] MEDS: Enoxaparin 40 MG/0.4 ML SYR SUBCUT SCH (09:56)
[2020-10-31] MEDS: Nystatin TOP POWDER 15 GM BTL TOPICAL SCH ×2 (09:56→20:49)
[2020-10-31] MEDS: CMCS:SitaGLIPtin 25mg TAB (NF) 25 MG TAB PO SCH (09:56)
[2020-11-01] MEDS: cefTRIAXone 1 gm/50 mL NS BAG 1 GM/50 ML BAG IVPB SCH (04:27)
[2020-11-01 05:37] LABS: Hematocrit 38 % (35-47); Hemoglobin 13.3 g/dL (12.0-16.0); Mean Corpuscular HGB Conc 35 g/dL (31-36); Mean Corpuscular Hemoglobin 33 pg (27-31); Mean Corpuscular Volume 93 fL (80-97); Mean Platelet Volume 9.4 fL (7.4-10.4); Platelet Count 267 10^3/uL (150-450); Red Blood Count 4.08 10^6 /uL (3.70-4.87); Red Cell Distribution Width 13 % (10-15)
[2020-11-01 06:01] LABS: Calcium 9.1 mg/dL (8.6-10.3); Potassium 3.5 mmol/L (3.5-5.0)
[2020-11-01 06:06] LABS: EGFR African American 112.6 (>60); EGFR Non-African American 93.1 (>60)
[2020-11-01 08:45] LABS: Magnesium 1.7 mg/dL (1.9-2.7)
[2020-11-01] MEDS: Enoxaparin 40 MG/0.4 ML SYR SUBCUT SCH (10:18)
[2020-11-01] MEDS: CMCS:SitaGLIPtin 25mg TAB (NF) 25 MG TAB PO SCH (10:18)
[2020-11-01] MEDS: Nystatin TOP POWDER 15 GM BTL TOPICAL SCH ×2 (10:19→20:10)
[2020-11-02] MEDS: cefTRIAXone 1 gm/50 mL NS BAG 1 GM/50 ML BAG IVPB SCH (05:23)
[2020-11-02 08:22] LABS: Hematocrit 37 % (35-47); Hemoglobin 13.2 g/dL (12.0-16.0); Mean Corpuscular HGB Conc 36 g/dL (31-36); Mean Corpuscular Hemoglobin 33 pg (27-31); Mean Corpuscular Volume 91 fL (80-97); Mean Platelet Volume 8.7 fL (7.4-10.4); Platelet Count 262 10^3/uL (150-450); Red Blood Count 4.05 10^6 /uL (3.70-4.87); Red Cell Distribution Width 13 % (10-15); White Blood Count 7.4 10^3/uL (3.5-10.8)
[2020-11-02 08:43] LABS: Albumin 3.5 g/dL (3.2-5.2); Albumin/Globulin Ratio 1.5 (1-3); Globulin 2.3 g/dL (2-4); Potassium 3.5 mmol/L (3.5-5.0); Total Bilirubin 0.3 mg/dL (0.2-1.0); Total Protein 5.8 g/dL (6.4-8.9)
[2020-11-02] MEDS: Enoxaparin 40 MG/0.4 ML SYR SUBCUT SCH (09:00)
[2020-11-02] MEDS: Nystatin TOP POWDER 15 GM BTL TOPICAL SCH ×2 (09:00→20:50)
[2020-11-02] MEDS: CMCS:SitaGLIPtin 25mg TAB (NF) 25 MG TAB PO SCH (09:01)
[2020-11-03] MEDS: cefTRIAXone 1 gm/50 mL NS BAG 1 GM/50 ML BAG IVPB SCH (04:05)
[2020-11-03] MEDS: CMCS:SitaGLIPtin 25mg TAB (NF) 25 MG TAB PO SCH (09:45)
[2020-11-03] MEDS: Enoxaparin 40 MG/0.4 ML SYR SUBCUT SCH (09:46)
[2020-11-03] MEDS: Nystatin TOP POWDER 15 GM BTL TOPICAL SCH ×2 (09:48→21:47)
[2020-11-04] MEDS: CMCS:SitaGLIPtin 25mg TAB (NF) 25 MG TAB PO SCH (10:16)
[2020-11-04] MEDS: Nystatin TOP POWDER 15 GM BTL TOPICAL SCH (10:17)
[2020-11-04] MEDS: Enoxaparin 40 MG/0.4 ML SYR SUBCUT SCH (10:17)
[2020-11-04 12:28] VITALS: BP 140/73
== END 2020-11-04 14:10 | DRG 194 ==
LOC: ED 16:46 → MEDTELE 16:46
PROVIDERS: ADMIT Internal Medicine; ATTEND Internal Medicine

== ENCOUNTER 2021-02-19 18:39 | Observation (INO) ==
[2021-02-19 21:07] LABS: ABS Basophils 0.1 10^3/ul (0-0.2); ABS Eosinophils 0.1 10^3/ul (0-0.6); ABS Lymphocytes 1.5 10^3/ul (1.0-4.8); ABS Monocytes 0.5 10^3/ul (0-0.8); ABS Neutrophils 5.8 10^3/ul (1.5-7.7); Eosinophil % 1.8 %; Hematocrit 46 % (35-47); Hemoglobin 16.3 g/dL (12.0-16.0); Lymphocyte % 18.9 %; Mean Corpuscular HGB Conc 35 g/dL (31-36); Mean Corpuscular Hemoglobin 32 pg (27-31); Mean Corpuscular Volume 90 fL (80-97); Mean Platelet Volume 8.5 fL (7.4-10.4); Platelet Count 276 10^3/uL (150-450); Red Blood Count 5.14 10^6 /uL (3.70-4.87); Red Cell Distribution Width 14 % (10-15)
[2021-02-19 21:19] LABS: Rapid COVID-19 Molecular Undetected (Undetected)
[2021-02-19 21:20] LABS: Influenza A Molecular Negative (Negative); Influenza B Molecular Negative (Negative)
[2021-02-19 21:23] LABS: Albumin 4.1 g/dL (3.2-5.2); Albumin/Globulin Ratio 1.4 (1-3); Calcium 9.6 mg/dL (8.6-10.3); Globulin 2.9 g/dL (2-4); Magnesium 1.9 mg/dL (1.9-2.7); Potassium 3.9 mmol/L (3.5-5.0); Total Bilirubin 1.1 mg/dL (0.2-1.0)
[2021-02-19 21:25] LABS: Troponin I 0.01 ng/mL (<0.03)
[2021-02-19] MEDS ORDERED: NS 0.9% 1000 ml BAG 1,000 ML IV ONE (21:35)
[2021-02-19] MEDS ORDERED: Iodixanol (CONTRAST) 320 MG/ML 100 ML SDV IV ONE (21:41)
[2021-02-20 02:39] LABS: Urine Appearance Turbid; Urine Bilirubin Negative (Negative); Urine Blood 1+ (Negative); Urine Color Yellow; Urine Glucose 3+(>=500 mg/dL) (Negative); Urine Ketones Negative (Negative); Urine Nitrite Negative (Negative); Urine Protein Negative (Negative); Urine Specific Gravity 1.021 (1.002-1.030); Urine Urobilinogen Negative (Negative)
[2021-02-20 02:47] LABS: Urine Bacteria 3+ (Absent); Urine Red Blood Cell 3+(>10/hpf) (Absent); Urine Squamous Epithelial Cell Present (Absent); Urine White Blood Cell 1+(6-10/hpf) (Absent)
[2021-02-20] MEDS ORDERED: cefTRIAXone 1 gm/50 mL NS BAG 1 GM/50 ML BAG IV ONE (03:32)
[2021-02-20] MEDS: Enoxaparin 40 MG/0.4 ML SYR SUBCUT SCH (12:33)
[2021-02-20] MEDS ORDERED: Dextrose 50% Syringe 50 ml 25 GM/50 ML SYRINGE IV PUSH PRN (12:36)
[2021-02-20 13:31] LABS: ABS Basophils 0.1 10^3/ul (0-0.2); ABS Eosinophils 0.2 10^3/ul (0-0.6); ABS Lymphocytes 1.6 10^3/ul (1.0-4.8); ABS Monocytes 0.4 10^3/ul (0-0.8); ABS Neutrophils 5.2 10^3/ul (1.5-7.7); Eosinophil % 2.5 %; Hematocrit 44 % (35-47); Hemoglobin 15.4 g/dL (12.0-16.0); Lymphocyte % 21.2 %; Mean Corpuscular HGB Conc 35 g/dL (31-36); Mean Corpuscular Hemoglobin 32 pg (27-31); Mean Corpuscular Volume 90 fL (80-97); Mean Platelet Volume 8.4 fL (7.4-10.4); Nucleated Red Blood Cells % 0.1; Platelet Count 238 10^3/uL (150-450); Red Blood Count 4.86 10^6 /uL (3.70-4.87); Red Cell Distribution Width 13 % (10-15); White Blood Count 7.4 10^3/uL (3.5-10.8)
[2021-02-20 13:48] LABS: Magnesium 1.9 mg/dL (1.9-2.7); Potassium 3.9 mmol/L (3.5-5.0)
[2021-02-20] MEDS: NS 0.9% 1000 ml BAG 1,000 ML IV SCH (18:02)
[2021-02-20] MEDS: cefTRIAXone 1 gm/50 mL NS BAG 1 GM/50 ML BAG IVPB SCH (21:31)
[2021-02-21] MEDS: NS 0.9% 1000 ml BAG 1,000 ML IV SCH (06:08)
[2021-02-21 06:21] LABS: ABS Basophils 0.1 10^3/ul (0-0.2); ABS Eosinophils 0.2 10^3/ul (0-0.6); ABS Lymphocytes 1.8 10^3/ul (1.0-4.8); ABS Monocytes 0.5 10^3/ul (0-0.8); ABS Neutrophils 4.6 10^3/ul (1.5-7.7); Eosinophil % 3.2 %; Hematocrit 41 % (35-47); Hemoglobin 14.4 g/dL (12.0-16.0); Lymphocyte % 24.7 %; Mean Corpuscular HGB Conc 35 g/dL (31-36); Mean Corpuscular Hemoglobin 32 pg (27-31); Mean Corpuscular Volume 90 fL (80-97); Mean Platelet Volume 8.4 fL (7.4-10.4); Nucleated Red Blood Cells % 0.1; Platelet Count 224 10^3/uL (150-450); Red Blood Count 4.51 10^6 /uL (3.70-4.87); Red Cell Distribution Width 13 % (10-15); White Blood Count 7.1 10^3/uL (3.5-10.8)
[2021-02-21 06:45] LABS: Calcium 8.9 mg/dL (8.6-10.3); Potassium 3.7 mmol/L (3.5-5.0)
[2021-02-21 10:22] LABS: TSH Ultra Thyroid Stim Horm 81.35 mcIU/mL (0.34-5.60)
[2021-02-21] MEDS: Enoxaparin 40 MG/0.4 ML SYR SUBCUT SCH (12:34)
[2021-02-21] MEDS: cefTRIAXone 1 gm/50 mL NS BAG 1 GM/50 ML BAG IVPB SCH (21:53)
[2021-02-22] MEDS: Enoxaparin 40 MG/0.4 ML SYR SUBCUT SCH (12:35)
[2021-02-22 12:41] VITALS: BP 132/67
== END 2021-02-22 13:00 | disposition home or self-care (01) ==
LOC: ED 18:39 → EDHOLD 18:39 → ICU 02-20 17:17
PROVIDERS: ADMIT Internal Medicine; ATTEND Internal Medicine

== ENCOUNTER 2021-03-17 09:14 | Inpatient (IN) ==
[2021-03-17] MEDS ORDERED: Lactated Ringers 1000 ml BAG 1,000 ML IV ONE (09:57)
[2021-03-17 10:22] LABS: ABS Eosinophils 0.1 10^3/ul (0-0.6); ABS Lymphocytes 0.4 10^3/ul (1.0-4.8); ABS Monocytes 0.5 10^3/ul (0-0.8); Eosinophil % 1.1 %; Hematocrit 41 % (35-47); Hemoglobin 14.7 g/dL (12.0-16.0); Lymphocyte % 5.7 %; Mean Corpuscular HGB Conc 36 g/dL (31-36); Mean Corpuscular Hemoglobin 32 pg (27-31); Mean Corpuscular Volume 90 fL (80-97); Mean Platelet Volume 8.2 fL (7.4-10.4); Platelet Count 269 10^3/uL (150-450); Red Blood Count 4.57 10^6 /uL (3.70-4.87); Red Cell Distribution Width 14 % (10-15)
[2021-03-17 10:44] LABS: Albumin 4.3 g/dL (3.2-5.2); Albumin/Globulin Ratio 1.6 (1-3); Calcium 9.5 mg/dL (8.6-10.3); Globulin 2.7 g/dL (2-4); Potassium 4.1 mmol/L (3.5-5.0); Total Bilirubin 1.2 mg/dL (0.2-1.0); eGFR CKD-EPI 91.1 (>60)
[2021-03-17 10:47] LABS: Urine Appearance Cloudy; Urine Bilirubin Negative (Negative); Urine Blood 1+ (Negative); Urine Color Yellow; Urine Glucose Negative (Negative); Urine Ketones Negative (Negative); Urine Nitrite Negative (Negative); Urine Protein Negative (Negative); Urine Specific Gravity 1.017 (1.002-1.030); Urine Urobilinogen Negative (Negative)
[2021-03-17 10:50] LABS: Urine Bacteria 1+ (Absent); Urine Red Blood Cell Trace(0-2/hpf) (Absent); Urine Squamous Epithelial Cell Present (Absent); Urine White Blood Cell Trace(0-5/hpf) (Absent)
[2021-03-17 15:46] LABS: Rapid COVID-19 Molecular Undetected (Undetected)
[2021-03-17] MEDS ORDERED: Ondansetron 4 mg VIAL 2 MG/ML 2 ml VIAL IV PRN (17:04)
[2021-03-17] MEDS ORDERED: Dextrose 50% Syringe 50 ml 25 GM/50 ML SYRINGE IV PUSH PRN (17:10)
[2021-03-17] MEDS ORDERED: Iodixanol (CONTRAST) 320 MG/ML 100 ML SDV IV ONE (17:17)
[2021-03-17] MEDS: Enoxaparin 40 MG/0.4 ML SYR SUBCUT SCH (18:54)
[2021-03-17 19:42] LABS: T4, Total 13.64 mcg/dL (6.09-12.23)
[2021-03-17 19:44] LABS: TSH Ultra Thyroid Stim Horm 4.08 mcIU/mL (0.34-5.60)
[2021-03-17 19:55] LABS: Folate 9.71 ng/mL (5.90-24.80)
[2021-03-17 23:57] LABS: PCO2 Arterial 38 mmHg (35-45); PO2 Arterial 65 mmHg (80-100)
[2021-03-18 07:07] LABS: ABS Lymphocytes 0.6 10^3/ul (1.0-4.8); ABS Monocytes 1.3 10^3/ul (0-0.8); ABS Neutrophils 5.7 10^3/ul (1.5-7.7); Eosinophil % 0.2 %; Hematocrit 42 % (35-47); Hemoglobin 15.1 g/dL (12.0-16.0); Lymphocyte % 8.3 %; Mean Corpuscular HGB Conc 36 g/dL (31-36); Mean Corpuscular Hemoglobin 33 pg (27-31); Mean Corpuscular Volume 91 fL (80-97); Mean Platelet Volume 8.6 fL (7.4-10.4); Nucleated Red Blood Cells % 0.1; Platelet Count 248 10^3/uL (150-450); Red Blood Count 4.64 10^6 /uL (3.70-4.87); Red Cell Distribution Width 14 % (10-15); White Blood Count 7.7 10^3/uL (3.5-10.8)
[2021-03-18 08:15] LABS: Calcium 9.2 mg/dL (8.6-10.3); eGFR CKD-EPI 89.7 (>60)
[2021-03-18] MEDS ORDERED: SitaGLIPtin 25mg TAB (NF) 25 MG TAB PO SCH (09:00)
[2021-03-18] MEDS ORDERED: Ammonia Inhalant 1 EA AMP INH ONE (09:33)
[2021-03-18] MEDS ORDERED: Lactated Ringers 1000 ml BAG 1,000 ML IV ONE ×2 (09:50→17:20)
[2021-03-18] MEDS ORDERED: Iodixanol (CONTRAST) 320 MG/ML 100 ML SDV IV ONE (09:53)
[2021-03-18 09:57] LABS: PCO2 Arterial 36 mmHg (35-45)
[2021-03-18 10:00] LABS: PO2 Arterial 55 mmHg (80-100)
[2021-03-18] MEDS ORDERED: Piperacillin/Tazobac ADVAN 3.375 GM in NS 0.9% 100 ml BAG 100 ML IV ONE (10:05)
[2021-03-18 10:15] LABS: Hematocrit 43 % (35-47); Hemoglobin 15.1 g/dL (12.0-16.0); Mean Corpuscular HGB Conc 35 g/dL (31-36); Mean Corpuscular Hemoglobin 32 pg (27-31); Mean Corpuscular Volume 91 fL (80-97); Mean Platelet Volume 8.4 fL (7.4-10.4); Platelet Count 250 10^3/uL (150-450); Red Blood Count 4.75 10^6 /uL (3.70-4.87); Red Cell Distribution Width 14 % (10-15); White Blood Count 9.7 10^3/uL (3.5-10.8)
[2021-03-18 10:27] LABS: Albumin 4.3 g/dL (3.2-5.2); Albumin/Globulin Ratio 1.5 (1-3); Calcium 9.5 mg/dL (8.6-10.3); Globulin 2.8 g/dL (2-4); Total Bilirubin 1.4 mg/dL (0.2-1.0); Total Protein 7.1 g/dL (6.4-8.9); eGFR CKD-EPI 88.8 (>60)
[2021-03-18] MEDS ORDERED: Zosyn per Pharmacy NOTE FOLLOW UP SCH (11:00)
[2021-03-18 11:13] LABS: ABS Lymphocytes 0.3 10^3/ul (1.0-4.8); ABS Monocytes 0.3 10^3/ul (0-0.8); ABS Neutrophils 9.1 10^3/ul (1.5-7.7); Eosinophil % 0.1 %; Lymphocyte % 2.7 %; Nucleated Red Blood Cells % 0.1
[2021-03-18] MEDS ORDERED: Aspirin EC 325 mg TAB.EC PO ONE (12:29)
[2021-03-18 12:32] LABS: ABS Lymphocytes 0.4 10^3/ul (1.0-4.8); ABS Monocytes 0.7 10^3/ul (0-0.8); ABS Neutrophils 9.6 10^3/ul (1.5-7.7); Eosinophil % 0.1 %; Hematocrit 40 % (35-47); Hemoglobin 14.1 g/dL (12.0-16.0); Lymphocyte % 4.1 %; Mean Corpuscular HGB Conc 36 g/dL (31-36); Mean Corpuscular Hemoglobin 32 pg (27-31); Mean Corpuscular Volume 91 fL (80-97); Mean Platelet Volume 8.6 fL (7.4-10.4); Platelet Count 245 10^3/uL (150-450); Red Blood Count 4.37 10^6 /uL (3.70-4.87); Red Cell Distribution Width 14 % (10-15); White Blood Count 10.8 10^3/uL (3.5-10.8)
[2021-03-18 12:41] LABS: INR 1.35 (0.86-1.15)
[2021-03-18 12:48] LABS: Potassium 3.9 mmol/L (3.5-5.0); eGFR CKD-EPI 88.8 (>60)
[2021-03-18] MEDS: Acetaminophen IV 1 GM/100ML 100 ML IV PRN (13:10)
[2021-03-18] MEDS: Enoxaparin 40 MG/0.4 ML SYR SUBCUT SCH (16:51)
[2021-03-18] MEDS: ZOSYN 3.375 GM Q8H per EXTENDED INFUSION IV SCH ×2 (16:51→23:48)
[2021-03-18] MEDS ORDERED: Lactated Ringers 500 ml BAG 500 ML IV ONE (21:18)
[2021-03-18] MEDS ORDERED: Lactated Ringers 1000 ml BAG 1,000 ML IV SCH (22:00)
[2021-03-19 04:54] LABS: Hematocrit 35 % (35-47); Hemoglobin 12.2 g/dL (12.0-16.0); Mean Corpuscular HGB Conc 35 g/dL (31-36); Mean Corpuscular Hemoglobin 32 pg (27-31); Mean Corpuscular Volume 90 fL (80-97); Mean Platelet Volume 8.3 fL (7.4-10.4); Platelet Count 201 10^3/uL (150-450); Red Blood Count 3.85 10^6 /uL (3.70-4.87); Red Cell Distribution Width 14 % (10-15); White Blood Count 10.5 10^3/uL (3.5-10.8)
[2021-03-19 05:11] LABS: Calcium 8.5 mg/dL (8.6-10.3); Phosphorus 3.2 mg/dL (2.5-5.0); Potassium 3.6 mmol/L (3.5-5.0); eGFR CKD-EPI 80.2 (>60)
[2021-03-19] MEDS: ZOSYN 3.375 GM Q8H per EXTENDED INFUSION IV SCH ×2 (08:15→16:20)
[2021-03-19] MEDS ORDERED: Potassium Chlor 20 meq TAB.ER PO ONE (08:16)
[2021-03-19] MEDS: Lactated Ringers 1000 ml BAG 1,000 ML IV SCH (09:38)
[2021-03-19] MEDS: Acetaminophen IV 1 GM/100ML 100 ML IV PRN (15:40)
[2021-03-19] MEDS: Enoxaparin 40 MG/0.4 ML SYR SUBCUT SCH (17:17)
[2021-03-19 21:57] LABS: Calcium 8.6 mg/dL (8.6-10.3)
[2021-03-19 21:59] LABS: Potassium 4.1 mmol/L (3.5-5.0)
[2021-03-20] MEDS: ZOSYN 3.375 GM Q8H per EXTENDED INFUSION IV SCH ×3 (00:35→16:07)
[2021-03-20 05:24] LABS: Hematocrit 34 % (35-47); Hemoglobin 12.2 g/dL (12.0-16.0); Mean Corpuscular HGB Conc 36 g/dL (31-36); Mean Corpuscular Hemoglobin 32 pg (27-31); Mean Corpuscular Volume 91 fL (80-97); Mean Platelet Volume 8.4 fL (7.4-10.4); Platelet Count 185 10^3/uL (150-450); Red Blood Count 3.76 10^6 /uL (3.70-4.87); Red Cell Distribution Width 14 % (10-15); White Blood Count 4.9 10^3/uL (3.5-10.8)
[2021-03-20 05:39] LABS: Magnesium 1.9 mg/dL (1.9-2.7); Phosphorus 2.1 mg/dL (2.5-5.0)
[2021-03-20] MEDS ORDERED: Magnesium Sulfate 2 gm BAG 2 GM/50 ML BAG IVPB ONE (07:26)
[2021-03-20] MEDS ORDERED: Potassium Phosphate IV 15 MMOLE in NS 0.9% 250 ml 250 ML IVPB ONE (07:26)
[2021-03-20] MEDS: Lactated Ringers 1000 ml BAG 1,000 ML IV SCH ×2 (10:58→23:52)
[2021-03-20] MEDS: cefTRIAXone 1 gm/50 mL NS BAG 1 GM/50 ML BAG IVPB SCH (18:27)
[2021-03-20] MEDS: Enoxaparin 40 MG/0.4 ML SYR SUBCUT SCH (18:27)
[2021-03-21] MEDS: Levothyroxine 100 MCG/5 ML VIAL IV SCH (06:05)
[2021-03-21 06:34] LABS: ABS Lymphocytes 0.7 10^3/ul (1.0-4.8); ABS Monocytes 0.2 10^3/ul (0-0.8); ABS Neutrophils 1.9 10^3/ul (1.5-7.7); Hematocrit 31 % (35-47); Hemoglobin 11.4 g/dL (12.0-16.0); Lymphocyte % 24.1 %; Mean Corpuscular HGB Conc 37 g/dL (31-36); Mean Corpuscular Hemoglobin 33 pg (27-31); Mean Corpuscular Volume 91 fL (80-97); Mean Platelet Volume 8.2 fL (7.4-10.4); Platelet Count 181 10^3/uL (150-450); Red Blood Count 3.43 10^6 /uL (3.70-4.87); Red Cell Distribution Width 14 % (10-15); White Blood Count 2.9 10^3/uL (3.5-10.8)
[2021-03-21 06:51] LABS: Phosphorus 1.8 mg/dL (2.5-5.0); Potassium 3.6 mmol/L (3.5-5.0)
[2021-03-21] MEDS: Lactated Ringers 1000 ml BAG 1,000 ML IV SCH ×3 (09:55→23:14)
[2021-03-21] MEDS: Pantoprazole VIAL 40 MG VIAL IV SCH (09:55)
[2021-03-21] MEDS: Enoxaparin 40 MG/0.4 ML SYR SUBCUT SCH (18:11)
[2021-03-21] MEDS: cefTRIAXone 1 gm/50 mL NS BAG 1 GM/50 ML BAG IVPB SCH (18:23)
[2021-03-22] MEDS: Levothyroxine 100 MCG/5 ML VIAL IV SCH (06:21)
[2021-03-22 06:52] LABS: INR 1.07 (0.86-1.15)
[2021-03-22 07:02] LABS: Albumin/Globulin Ratio 1.4 (1-3); Globulin 2.2 g/dL (2-4); Potassium 3.5 mmol/L (3.5-5.0); Total Bilirubin 0.4 mg/dL (0.2-1.0); Total Protein 5.2 g/dL (6.4-8.9); eGFR CKD-EPI 101.2 (>60)
[2021-03-22] MEDS ORDERED: Remdesivir 100 mg Vial 200 MG in NS 0.9% 250 ml 210 ML IV ONE (08:00)
[2021-03-22] MEDS: Pantoprazole VIAL 40 MG VIAL IV SCH (10:55)
[2021-03-22] MEDS ORDERED: Cefepime 1 GM in Dextrose 1 GM/50 ML BAG IV SCH (16:00)
[2021-03-22] MEDS ORDERED: Cefepime ADVAN 1 GM in NS 0.9% 50 ML 50 ML IVPB SCH (16:00)
[2021-03-22] MEDS: Cefepime 1 GM in Dextrose 1 GM/50 ML BAG IV SCH (17:05)
[2021-03-22] MEDS: Lactated Ringers 1000 ml BAG 1,000 ML IV SCH (17:07)
[2021-03-22] MEDS: Enoxaparin 40 MG/0.4 ML SYR SUBCUT SCH (18:43)
[2021-03-23] MEDS: Cefepime 1 GM in Dextrose 1 GM/50 ML BAG IV SCH ×2 (04:09→17:33)
[2021-03-23] MEDS: Levothyroxine 100 MCG/5 ML VIAL IV SCH (06:04)
[2021-03-23] MEDS ORDERED: Remdesivir 100 mg Vial 100 MG in NS 0.9% 250 ml 230 ML IV SCH (08:00)
[2021-03-23] MEDS: Pantoprazole VIAL 40 MG VIAL IV SCH (10:22)
[2021-03-23] MEDS: Lactated Ringers 1000 ml BAG 1,000 ML IV SCH (12:19)
[2021-03-23] MEDS ORDERED: Benzocaine/Menthol LOZ PO PRN (12:20)
[2021-03-23] MEDS: Enoxaparin 40 MG/0.4 ML SYR SUBCUT SCH (17:33)
[2021-03-23 22:36] LABS: ABS Lymphocytes 0.4 10^3/ul (1.0-4.8); ABS Monocytes 0.3 10^3/ul (0-0.8); ABS Neutrophils 2.3 10^3/ul (1.5-7.7); Hematocrit 32 % (35-47); Hemoglobin 11.2 g/dL (12.0-16.0); Lymphocyte % 13.8 %; Mean Corpuscular HGB Conc 36 g/dL (31-36); Mean Corpuscular Hemoglobin 32 pg (27-31); Mean Corpuscular Volume 90 fL (80-97); Mean Platelet Volume 8.2 fL (7.4-10.4); Platelet Count 175 10^3/uL (150-450); Red Blood Count 3.53 10^6 /uL (3.70-4.87); Red Cell Distribution Width 14 % (10-15); White Blood Count 3.1 10^3/uL (3.5-10.8)
[2021-03-23 22:54] LABS: Albumin/Globulin Ratio 1.4 (1-3); Globulin 2.2 g/dL (2-4); Potassium 3.4 mmol/L (3.5-5.0); Total Bilirubin 0.4 mg/dL (0.2-1.0); Total Protein 5.2 g/dL (6.4-8.9); eGFR CKD-EPI 100.6 (>60)
[2021-03-24] MEDS: Cefepime 1 GM in Dextrose 1 GM/50 ML BAG IV SCH (03:27)
[2021-03-24] MEDS: Levothyroxine 100 MCG/5 ML VIAL IV SCH (05:34)
[2021-03-24 06:21] LABS: ABS Lymphocytes 0.6 10^3/ul (1.0-4.8); ABS Monocytes 0.5 10^3/ul (0-0.8); ABS Neutrophils 2.8 10^3/ul (1.5-7.7); Hematocrit 36 % (35-47); Hemoglobin 12.4 g/dL (12.0-16.0); Lymphocyte % 16.5 %; Mean Corpuscular HGB Conc 35 g/dL (31-36); Mean Corpuscular Hemoglobin 32 pg (27-31); Mean Corpuscular Volume 90 fL (80-97); Mean Platelet Volume 8.4 fL (7.4-10.4); Platelet Count 194 10^3/uL (150-450); Red Blood Count 3.95 10^6 /uL (3.70-4.87); Red Cell Distribution Width 14 % (10-15); White Blood Count 3.9 10^3/uL (3.5-10.8)
[2021-03-24 06:31] LABS: INR 1.15 (0.86-1.15)
[2021-03-24 06:46] LABS: Albumin 3.2 g/dL (3.2-5.2); Albumin/Globulin Ratio 1.4 (1-3); Calcium 8.3 mg/dL (8.6-10.3); Globulin 2.3 g/dL (2-4); Potassium 3.2 mmol/L (3.5-5.0); Total Bilirubin 0.5 mg/dL (0.2-1.0); Total Protein 5.5 g/dL (6.4-8.9); eGFR CKD-EPI 100.1 (>60)
[2021-03-24] MEDS ORDERED: Potassium Chlor 20 meq TAB.ER PO ONE ×2 (07:53→12:00)
[2021-03-24] MEDS ORDERED: Loperamide LIQ 2 MG/15 ML UDC PO PRN (07:54)
[2021-03-24] MEDS: Remdesivir 100 mg Vial 100 MG in NS 0.9% 250 ml 230 ML IV SCH (09:26)
[2021-03-24] MEDS: Pantoprazole VIAL 40 MG VIAL IV SCH (09:31)
[2021-03-24] MEDS: Lactated Ringers 1000 ml BAG 1,000 ML IV SCH (10:50)
[2021-03-24 11:48] LABS: Magnesium 1.8 mg/dL (1.9-2.7)
[2021-03-24] MEDS: Enoxaparin 40 MG/0.4 ML SYR SUBCUT SCH (17:25)
[2021-03-24] MEDS: Insulin GLARGINE 100 un/ml 10 ml VIAL SUBCUT SCH (21:22)
[2021-03-25] MEDS: Levothyroxine 100 MCG/5 ML VIAL IV SCH (05:50)
[2021-03-25 08:54] LABS: INR 1.2 (0.86-1.15)
[2021-03-25 09:34] LABS: CO2 Carbon Dioxide 28 mmol/L (22-32); Calcium 8.2 mg/dL (8.6-10.3); Chloride 104 mmol/L (101-111); Sodium 142 mmol/L (135-145)
[2021-03-25 09:40] LABS: ALT 21 U/L (7-52); Albumin/Globulin Ratio 1.6 (1-3); Alkaline Phosphatase 82 U/L (35-149); Blood Urea Nitrogen 7 mg/dL (6-24); Globulin 1.9 g/dL (2-4); Glucose 117 mg/dL (70-100); Total Protein 4.9 g/dL (6.4-8.9); eGFR CKD-EPI 100.1 (>60)
[2021-03-25 09:45] LABS: Hematocrit 39 % (35-47); Hemoglobin 13.6 g/dL (12.0-16.0); Mean Corpuscular HGB Conc 35 g/dL (31-36); Mean Corpuscular Hemoglobin 32 pg (27-31); Mean Corpuscular Volume 90 fL (80-97); Platelet Count 249 10^3/uL (150-450); Red Cell Distribution Width 14 % (10-15); White Blood Count 6.2 10^3/uL (3.5-10.8)
[2021-03-25 10:05] LABS: Anion Gap 10 mmol/L (2-11)
[2021-03-25 10:32] LABS: ABS Lymphocytes 1.3 10^3/ul (1.0-4.8); ABS Monocytes 0.7 10^3/ul (0-0.8); ABS Neutrophils 4.2 10^3/ul (1.5-7.7); Eosinophil % 0.2 %; Lymphocyte % 20.6 %; Nucleated Red Blood Cells % 0.1; RBC Morphology Normal (Normal)
[2021-03-25] MEDS: Pantoprazole VIAL 40 MG VIAL IV SCH (10:57)
[2021-03-25] MEDS: Lactated Ringers 1000 ml BAG 1,000 ML IV SCH (10:58)
[2021-03-25] MEDS: Remdesivir 100 mg Vial 100 MG in NS 0.9% 250 ml 230 ML IV SCH (11:12)
[2021-03-25 11:58] LABS: Potassium Redraw 3.3 mmol/L (3.5-5.0)
[2021-03-25 12:30] LABS: C Reactive Protein 25.38 mg/L (<8.01)
[2021-03-25 13:40] LABS: Magnesium 1.5 mg/dL (1.9-2.7)
[2021-03-25] MEDS: Enoxaparin 40 MG/0.4 ML SYR SUBCUT SCH (17:57)
[2021-03-25] MEDS: Potassium Chlor 20 meq TAB.ER PO SCH (17:58)
[2021-03-25] MEDS: Insulin GLARGINE 100 un/ml 10 ml VIAL SUBCUT SCH (23:24)
[2021-03-26 03:02] LABS: INR 1.22 (0.86-1.15)
[2021-03-26 03:08] LABS: Albumin 3.2 g/dL (3.2-5.2); Albumin/Globulin Ratio 1.3 (1-3); Calcium 8.5 mg/dL (8.6-10.3); Globulin 2.4 g/dL (2-4); Magnesium 1.7 mg/dL (1.9-2.7); Potassium 3.6 mmol/L (3.5-5.0); Total Bilirubin 0.7 mg/dL (0.2-1.0); Total Protein 5.6 g/dL (6.4-8.9); eGFR CKD-EPI 97.9 (>60)
[2021-03-26] MEDS ORDERED: Magnesium Sulfate 2 gm BAG 2 GM/50 ML BAG IVPB ONE (03:20)
[2021-03-26] MEDS ORDERED: Potassium Chlor 20 meq TAB.ER PO ONE (03:20)
[2021-03-26] MEDS: Lactated Ringers 1000 ml BAG 1,000 ML IV SCH (05:55)
[2021-03-26] MEDS: Levothyroxine 100 MCG/5 ML VIAL IV SCH (05:56)
[2021-03-26] MEDS: Potassium Chlor 20 meq TAB.ER PO SCH (09:39)
[2021-03-26] MEDS: Pantoprazole VIAL 40 MG VIAL IV SCH (09:40)
[2021-03-26] MEDS: Remdesivir 100 mg Vial 100 MG in NS 0.9% 250 ml 230 ML IV SCH (09:54)
[2021-03-26] MEDS: Enoxaparin 40 MG/0.4 ML SYR SUBCUT SCH (17:07)
[2021-03-26] MEDS: Insulin GLARGINE 100 un/ml 10 ml VIAL SUBCUT SCH (21:03)
[2021-03-27] MEDS: Lactated Ringers 1000 ml BAG 1,000 ML IV SCH (03:14)
[2021-03-27] MEDS: Levothyroxine 100 MCG/5 ML VIAL IV SCH (05:25)
[2021-03-27 08:04] LABS: Hematocrit 41 % (35-47); Hemoglobin 14.2 g/dL (12.0-16.0); Mean Corpuscular HGB Conc 35 g/dL (31-36); Mean Corpuscular Hemoglobin 31 pg (27-31); Mean Corpuscular Volume 89 fL (80-97); Mean Platelet Volume 8.1 fL (7.4-10.4); Platelet Count 300 10^3/uL (150-450); Red Blood Count 4.55 10^6 /uL (3.70-4.87); Red Cell Distribution Width 14 % (10-15); White Blood Count 8.7 10^3/uL (3.5-10.8)
[2021-03-27 08:21] LABS: Calcium 8.5 mg/dL (8.6-10.3); Magnesium 1.8 mg/dL (1.9-2.7); Potassium 4.2 mmol/L (3.5-5.0); eGFR CKD-EPI 101.2 (>60)
[2021-03-27 08:41] LABS: ABS Eosinophils 0.1 10^3/ul (0-0.6); ABS Lymphocytes 1.1 10^3/ul (1.0-4.8); ABS Monocytes 0.9 10^3/ul (0-0.8); ABS Neutrophils 6.6 10^3/ul (1.5-7.7); Lymphocyte % 12.8 %; Nucleated Red Blood Cells % 0.1
[2021-03-27 08:49] LABS: RBC Morphology Normal (Normal)
[2021-03-27] MEDS: Remdesivir 100 mg Vial 100 MG in NS 0.9% 250 ml 230 ML IV SCH (10:11)
[2021-03-27] MEDS: Pantoprazole VIAL 40 MG VIAL IV SCH (10:12)
[2021-03-27] MEDS: Potassium Chlor 20 meq TAB.ER PO SCH (10:12)
[2021-03-27] MEDS: Enoxaparin 40 MG/0.4 ML SYR SUBCUT SCH (16:34)
[2021-03-27] MEDS: Insulin GLARGINE 100 un/ml 10 ml VIAL SUBCUT SCH (23:09)
[2021-03-28] MEDS ORDERED: Furosemide 40 mg/4 ml IV VIAL IV SLOW PU ONE ×2 (06:30)
[2021-03-28] MEDS ORDERED: Zosyn per Pharmacy NOTE FOLLOW UP PRN (07:45)
[2021-03-28] MEDS: Remdesivir 100 mg Vial 100 MG in NS 0.9% 250 ml 230 ML IV SCH (08:21)
[2021-03-28] MEDS: Potassium Chlor 20 meq TAB.ER PO SCH (08:41)
[2021-03-28] MEDS: Piperacillin/Tazobac ADVAN 3.375 GM in NS 0.9% 100 ml BAG 100 ML IV SCH ×3 (09:34→23:46)
[2021-03-28 11:01] LABS: Hematocrit 41 % (35-47); Hemoglobin 14.4 g/dL (12.0-16.0); Mean Corpuscular HGB Conc 36 g/dL (31-36); Mean Corpuscular Hemoglobin 32 pg (27-31); Mean Corpuscular Volume 89 fL (80-97); Mean Platelet Volume 8.1 fL (7.4-10.4); Platelet Count 369 10^3/uL (150-450); Red Blood Count 4.57 10^6 /uL (3.70-4.87); Red Cell Distribution Width 14 % (10-15)
[2021-03-28 11:30] LABS: Calcium 8.7 mg/dL (8.6-10.3); Magnesium 1.9 mg/dL (1.9-2.7); eGFR CKD-EPI 92.6 (>60)
[2021-03-28] MEDS ORDERED: Furosemide 20 mg/2 ml IV VIAL IV SLOW PU ONE (11:49)
[2021-03-28] MEDS: Enoxaparin 40 MG/0.4 ML SYR SUBCUT SCH (16:01)
[2021-03-28] MEDS: Insulin GLARGINE 100 un/ml 10 ml VIAL SUBCUT SCH (20:50)
[2021-03-28 21:35] LABS: Glucose Confirmatory 454 mg/dL (70-100)
[2021-03-29] MEDS ORDERED: Dextrose 50% Syringe 50 ml 25 GM/50 ML SYRINGE IV PUSH PRN (00:37)
[2021-03-29 05:03] LABS: ABS Lymphocytes 1.3 10^3/ul (1.0-4.8); ABS Monocytes 1.2 10^3/ul (0-0.8); Eosinophil % 0.4 %; Hematocrit 41 % (35-47); Hemoglobin 14.2 g/dL (12.0-16.0); Lymphocyte % 11.4 %; Mean Corpuscular HGB Conc 35 g/dL (31-36); Mean Corpuscular Hemoglobin 31 pg (27-31); Mean Corpuscular Volume 90 fL (80-97); Mean Platelet Volume 8.3 fL (7.4-10.4); Platelet Count 338 10^3/uL (150-450); Red Blood Count 4.55 10^6 /uL (3.70-4.87); Red Cell Distribution Width 14 % (10-15); White Blood Count 11.6 10^3/uL (3.5-10.8)
[2021-03-29] MEDS: Remdesivir 100 mg Vial 100 MG in NS 0.9% 250 ml 230 ML IV SCH (07:45)
[2021-03-29] MEDS: Piperacillin/Tazobac ADVAN 3.375 GM in NS 0.9% 100 ml BAG 100 ML IV SCH ×3 (10:25→23:46)
[2021-03-29] MEDS: Potassium Chlor 20 meq TAB.ER PO SCH (10:31)
[2021-03-29] MEDS ORDERED: Insulin GLARGINE 100 un/ml 10 ml VIAL SUBCUT ONE (17:28)
[2021-03-29] MEDS: Enoxaparin 40 MG/0.4 ML SYR SUBCUT SCH (17:47)
[2021-03-29] MEDS: Insulin GLARGINE 100 un/ml 10 ml VIAL SUBCUT SCH (21:06)
[2021-03-30 06:56] LABS: ABS Eosinophils 0.1 10^3/ul (0-0.6); ABS Lymphocytes 1.1 10^3/ul (1.0-4.8); ABS Monocytes 0.9 10^3/ul (0-0.8); ABS Neutrophils 6.5 10^3/ul (1.5-7.7); Eosinophil % 0.8 %; Hematocrit 37 % (35-47); Hemoglobin 13.1 g/dL (12.0-16.0); Lymphocyte % 12.7 %; Mean Corpuscular HGB Conc 35 g/dL (31-36); Mean Corpuscular Hemoglobin 32 pg (27-31); Mean Corpuscular Volume 90 fL (80-97); Mean Platelet Volume 8.4 fL (7.4-10.4); Nucleated Red Blood Cells % 0.1; Platelet Count 337 10^3/uL (150-450); Red Blood Count 4.13 10^6 /uL (3.70-4.87); Red Cell Distribution Width 14 % (10-15); White Blood Count 8.5 10^3/uL (3.5-10.8)
[2021-03-30 07:19] LABS: C Reactive Protein 29.09 mg/L (<8.01); Calcium 8.3 mg/dL (8.6-10.3); Potassium 3.9 mmol/L (3.5-5.0); eGFR CKD-EPI 93.4 (>60)
[2021-03-30] MEDS: Potassium Chlor 20 meq TAB.ER PO SCH (07:56)
[2021-03-30] MEDS: Piperacillin/Tazobac ADVAN 3.375 GM in NS 0.9% 100 ml BAG 100 ML IV SCH ×2 (08:03→17:24)
[2021-03-30] MEDS ORDERED: Furosemide 20 mg/2 ml IV VIAL IV SLOW PU ONE (09:17)
[2021-03-30] MEDS: Remdesivir 100 mg Vial 100 MG in NS 0.9% 250 ml 230 ML IV SCH (11:56)
[2021-03-30] MEDS ORDERED: Dextrose 50% Syringe 50 ml 25 GM/50 ML SYRINGE IV PUSH PRN (11:58)
[2021-03-30] MEDS ORDERED: Insulin GLARGINE 100 un/ml 10 ml VIAL SUBCUT SCH (12:00)
[2021-03-30 12:28] LABS: Glucose Confirmatory 518 mg/dL (70-100)
[2021-03-30] MEDS: Enoxaparin 40 MG/0.4 ML SYR SUBCUT SCH (17:25)
[2021-03-31] MEDS: Piperacillin/Tazobac ADVAN 3.375 GM in NS 0.9% 100 ml BAG 100 ML IV SCH ×3 (01:44→16:36)
[2021-03-31 07:04] LABS: Calcium 8.1 mg/dL (8.6-10.3); Potassium 3.9 mmol/L (3.5-5.0); eGFR CKD-EPI 90.7 (>60)
[2021-03-31] MEDS: Potassium Chlor 20 meq TAB.ER PO SCH (10:01)
[2021-03-31] MEDS: Remdesivir 100 mg Vial 100 MG in NS 0.9% 250 ml 230 ML IV SCH (11:58)
[2021-03-31] MEDS: Enoxaparin 40 MG/0.4 ML SYR SUBCUT SCH (17:31)
[2021-03-31] MEDS: Insulin GLARGINE 100 un/ml 10 ml VIAL SUBCUT SCH (20:55)
[2021-03-31 23:34] LABS: Rapid COVID-19 Molecular Undetected (Undetected)
[2021-04-01] MEDS: Piperacillin/Tazobac ADVAN 3.375 GM in NS 0.9% 100 ml BAG 100 ML IV SCH ×4 (00:31→23:22)
[2021-04-01] MEDS: Potassium Chlor 20 meq TAB.ER PO SCH (10:08)
[2021-04-01] MEDS: Enoxaparin 40 MG/0.4 ML SYR SUBCUT SCH (17:04)
[2021-04-01] MEDS: Insulin GLARGINE 100 un/ml 10 ml VIAL SUBCUT SCH (21:54)
[2021-04-02 05:08] LABS: ABS Basophils 0.1 10^3/ul (0-0.2); ABS Eosinophils 0.1 10^3/ul (0-0.6); ABS Monocytes 0.6 10^3/ul (0-0.8); ABS Neutrophils 4.1 10^3/ul (1.5-7.7); Eosinophil % 2.5 %; Hematocrit 37 % (35-47); Hemoglobin 12.5 g/dL (12.0-16.0); Lymphocyte % 17.4 %; Mean Corpuscular HGB Conc 34 g/dL (31-36); Mean Corpuscular Hemoglobin 31 pg (27-31); Mean Corpuscular Volume 91 fL (80-97); Mean Platelet Volume 8.6 fL (7.4-10.4); Platelet Count 257 10^3/uL (150-450); Red Blood Count 4.01 10^6 /uL (3.70-4.87); Red Cell Distribution Width 14 % (10-15); White Blood Count 5.9 10^3/uL (3.5-10.8)
[2021-04-02 05:24] LABS: Albumin 2.8 g/dL (3.2-5.2); Albumin/Globulin Ratio 1.2 (1-3); Calcium 8.3 mg/dL (8.6-10.3); Globulin 2.4 g/dL (2-4); Total Bilirubin 0.8 mg/dL (0.2-1.0); Total Protein 5.2 g/dL (6.4-8.9); eGFR CKD-EPI 94.6 (>60)
[2021-04-02] MEDS: Potassium Chlor 20 meq TAB.ER PO SCH (08:02)
[2021-04-02] MEDS: Piperacillin/Tazobac ADVAN 3.375 GM in NS 0.9% 100 ml BAG 100 ML IV SCH ×2 (08:25→17:18)
[2021-04-02] MEDS: Enoxaparin 40 MG/0.4 ML SYR SUBCUT SCH (17:19)
[2021-04-02] MEDS: Insulin GLARGINE 100 un/ml 10 ml VIAL SUBCUT SCH (22:13)
[2021-04-03] MEDS: Piperacillin/Tazobac ADVAN 3.375 GM in NS 0.9% 100 ml BAG 100 ML IV SCH ×3 (00:52→16:08)
[2021-04-03] MEDS: Potassium Chlor 20 meq TAB.ER PO SCH (09:10)
[2021-04-03 09:20] LABS: ABS Basophils 0.1 10^3/ul (0-0.2); ABS Eosinophils 0.1 10^3/ul (0-0.6); ABS Monocytes 0.6 10^3/ul (0-0.8); ABS Neutrophils 5.4 10^3/ul (1.5-7.7); Eosinophil % 1.3 %; Hematocrit 37 % (35-47); Hemoglobin 13.1 g/dL (12.0-16.0); Lymphocyte % 14.4 %; Mean Corpuscular HGB Conc 35 g/dL (31-36); Mean Corpuscular Hemoglobin 32 pg (27-31); Mean Corpuscular Volume 90 fL (80-97); Mean Platelet Volume 8.2 fL (7.4-10.4); Platelet Count 275 10^3/uL (150-450); Red Blood Count 4.11 10^6 /uL (3.70-4.87); Red Cell Distribution Width 15 % (10-15); White Blood Count 7.1 10^3/uL (3.5-10.8)
[2021-04-03 09:36] LABS: Albumin 3.1 g/dL (3.2-5.2); Albumin/Globulin Ratio 1.3 (1-3); Calcium 8.7 mg/dL (8.6-10.3); Globulin 2.4 g/dL (2-4); Potassium 4.2 mmol/L (3.5-5.0); Total Bilirubin 0.8 mg/dL (0.2-1.0); Total Protein 5.5 g/dL (6.4-8.9); eGFR CKD-EPI 96.9 (>60)
[2021-04-03] MEDS: Enoxaparin 40 MG/0.4 ML SYR SUBCUT SCH (16:14)
[2021-04-03] MEDS: Insulin GLARGINE 100 un/ml 10 ml VIAL SUBCUT SCH (22:42)
[2021-04-04] MEDS: Piperacillin/Tazobac ADVAN 3.375 GM in NS 0.9% 100 ml BAG 100 ML IV SCH (00:04)
[2021-04-04 06:52] LABS: ABS Basophils 0.1 10^3/ul (0-0.2); ABS Eosinophils 0.1 10^3/ul (0-0.6); ABS Lymphocytes 1.3 10^3/ul (1.0-4.8); ABS Monocytes 0.6 10^3/ul (0-0.8); ABS Neutrophils 5.8 10^3/ul (1.5-7.7); Eosinophil % 1.3 %; Hematocrit 38 % (35-47); Hemoglobin 13.2 g/dL (12.0-16.0); Lymphocyte % 16.2 %; Mean Corpuscular HGB Conc 35 g/dL (31-36); Mean Corpuscular Hemoglobin 31 pg (27-31); Mean Corpuscular Volume 91 fL (80-97); Mean Platelet Volume 8.5 fL (7.4-10.4); Platelet Count 279 10^3/uL (150-450); Red Blood Count 4.19 10^6 /uL (3.70-4.87); Red Cell Distribution Width 14 % (10-15); White Blood Count 7.9 10^3/uL (3.5-10.8)
[2021-04-04 07:01] LABS: Calcium 8.7 mg/dL (8.6-10.3); Potassium 3.8 mmol/L (3.5-5.0); eGFR CKD-EPI 95.5 (>60)
[2021-04-04] MEDS: Potassium Chlor 20 meq TAB.ER PO SCH (08:08)
[2021-04-04] MEDS: Enoxaparin 40 MG/0.4 ML SYR SUBCUT SCH (17:00)
[2021-04-04] MEDS: Insulin GLARGINE 100 un/ml 10 ml VIAL SUBCUT SCH (20:27)
[2021-04-05] MEDS: Potassium Chlor 20 meq TAB.ER PO SCH (07:56)
[2021-04-05] MEDS: Enoxaparin 40 MG/0.4 ML SYR SUBCUT SCH (17:06)
[2021-04-05] MEDS: Insulin GLARGINE 100 un/ml 10 ml VIAL SUBCUT SCH (20:00)
[2021-04-06 06:16] LABS: ABS Basophils 0.1 10^3/ul (0-0.2); ABS Eosinophils 0.2 10^3/ul (0-0.6); ABS Lymphocytes 1.6 10^3/ul (1.0-4.8); ABS Monocytes 0.6 10^3/ul (0-0.8); ABS Neutrophils 4.3 10^3/ul (1.5-7.7); Eosinophil % 2.5 %; Hematocrit 35 % (35-47); Hemoglobin 12.2 g/dL (12.0-16.0); Lymphocyte % 23.2 %; Mean Corpuscular HGB Conc 35 g/dL (31-36); Mean Corpuscular Hemoglobin 32 pg (27-31); Mean Corpuscular Volume 91 fL (80-97); Mean Platelet Volume 8.8 fL (7.4-10.4); Platelet Count 255 10^3/uL (150-450); Red Blood Count 3.86 10^6 /uL (3.70-4.87); Red Cell Distribution Width 15 % (10-15); White Blood Count 6.8 10^3/uL (3.5-10.8)
[2021-04-06 06:38] LABS: Calcium 8.7 mg/dL (8.6-10.3); Magnesium 1.6 mg/dL (1.9-2.7); Potassium 3.8 mmol/L (3.5-5.0); eGFR CKD-EPI 97.4 (>60)
[2021-04-06] MEDS: Potassium Chlor 20 meq TAB.ER PO SCH (08:11)
[2021-04-06] MEDS ORDERED: Magnesium Sulfate 2 gm BAG 2 GM/50 ML BAG IVPB ONE (12:42)
[2021-04-06] MEDS: Enoxaparin 40 MG/0.4 ML SYR SUBCUT SCH (16:58)
[2021-04-06] MEDS: Insulin GLARGINE 100 un/ml 10 ml VIAL SUBCUT SCH (20:51)
[2021-04-07 06:13] LABS: Calcium 8.5 mg/dL (8.6-10.3); Magnesium 1.8 mg/dL (1.9-2.7); Potassium 4.2 mmol/L (3.5-5.0)
[2021-04-07] MEDS ORDERED: Magnesium Sulfate 2 gm BAG 2 GM/50 ML BAG IVPB ONE (08:12)
[2021-04-07] MEDS: Potassium Chlor 20 meq TAB.ER PO SCH (09:04)
[2021-04-07 11:51] LABS: eGFR CKD-EPI 93.8 (>60)
[2021-04-07] MEDS: Enoxaparin 40 MG/0.4 ML SYR SUBCUT SCH (17:15)
[2021-04-07] MEDS: Insulin GLARGINE 100 un/ml 10 ml VIAL SUBCUT SCH (21:31)
[2021-04-08 05:03] LABS: Calcium 8.7 mg/dL (8.6-10.3); Magnesium 1.8 mg/dL (1.9-2.7); Potassium 4.1 mmol/L (3.5-5.0); eGFR CKD-EPI 100.1 (>60)
[2021-04-08] MEDS ORDERED: Magnesium Sulfate IV 1GM/100ML 1 GM/100 ML BAG IV ONE (09:00)
[2021-04-08] MEDS: Potassium Chlor 20 meq TAB.ER PO SCH (09:59)
[2021-04-08] MEDS: Enoxaparin 40 MG/0.4 ML SYR SUBCUT SCH (18:25)
[2021-04-08] MEDS: Insulin GLARGINE 100 un/ml 10 ml VIAL SUBCUT SCH (23:03)
[2021-04-09] MEDS: Potassium Chlor 20 meq TAB.ER PO SCH (08:24)
[2021-04-09 11:32] LABS: Calcium 8.8 mg/dL (8.6-10.3); Magnesium 1.7 mg/dL (1.9-2.7); Potassium 4.4 mmol/L (3.5-5.0)
[2021-04-09] MEDS ORDERED: Magnesium Sulfate 2 gm BAG 2 GM/50 ML BAG IVPB ONE (17:10)
[2021-04-09] MEDS: Enoxaparin 40 MG/0.4 ML SYR SUBCUT SCH (17:31)
[2021-04-09] MEDS: Insulin GLARGINE 100 un/ml 10 ml VIAL SUBCUT SCH (21:24)
[2021-04-10] MEDS: Potassium Chlor 20 meq TAB.ER PO SCH (08:24)
[2021-04-10 12:58] LABS: Rapid COVID-19 Molecular Undetected (Undetected)
[2021-04-10] MEDS: Enoxaparin 40 MG/0.4 ML SYR SUBCUT SCH (17:54)
[2021-04-10] MEDS: Insulin GLARGINE 100 un/ml 10 ml VIAL SUBCUT SCH (21:33)
[2021-04-11] MEDS: Potassium Chlor 20 meq TAB.ER PO SCH (08:53)
[2021-04-11 10:02] LABS: CRP High Sensitivity 8.71 mg/L (<2.00); Calcium 9.6 mg/dL (8.6-10.3); Magnesium 1.6 mg/dL (1.9-2.7); Potassium 4.1 mmol/L (3.5-5.0); eGFR CKD-EPI 100.6 (>60)
[2021-04-11] MEDS ORDERED: Magnesium Sulfate IV 3 GM in NS 0.9% 100 ml BAG 100 ML IVPB ONE (10:24)
[2021-04-11] MEDS: Aspirin EC 81 mg TAB.EC (enteric coated) PO SCH (14:29)
[2021-04-11] MEDS: Enoxaparin 40 MG/0.4 ML SYR SUBCUT SCH (17:26)
[2021-04-11] MEDS: Insulin GLARGINE 100 un/ml 10 ml VIAL SUBCUT SCH ×2 (22:10→23:39)
[2021-04-12] MEDS: Aspirin EC 81 mg TAB.EC (enteric coated) PO SCH (08:33)
[2021-04-12] MEDS: Potassium Chlor 20 meq TAB.ER PO SCH (08:35)
[2021-04-12] MEDS: Enoxaparin 40 MG/0.4 ML SYR SUBCUT SCH (17:16)
[2021-04-12] MEDS: Insulin GLARGINE 100 un/ml 10 ml VIAL SUBCUT SCH (21:03)
[2021-04-12 21:40] LABS: ABS Basophils 0.1 10^3/ul (0-0.2); ABS Eosinophils 0.2 10^3/ul (0-0.6); ABS Lymphocytes 1.7 10^3/ul (1.0-4.8); ABS Monocytes 0.6 10^3/ul (0-0.8); ABS Neutrophils 4.7 10^3/ul (1.5-7.7); Eosinophil % 3.2 %; Hematocrit 36 % (35-47); Hemoglobin 12.5 g/dL (12.0-16.0); Lymphocyte % 23.8 %; Mean Corpuscular HGB Conc 35 g/dL (31-36); Mean Corpuscular Hemoglobin 32 pg (27-31); Mean Corpuscular Volume 92 fL (80-97); Mean Platelet Volume 8.6 fL (7.4-10.4); Platelet Count 223 10^3/uL (150-450); Red Blood Count 3.92 10^6 /uL (3.70-4.87); Red Cell Distribution Width 15 % (10-15); White Blood Count 7.3 10^3/uL (3.5-10.8)
[2021-04-12 22:07] LABS: Calcium 8.9 mg/dL (8.6-10.3); Magnesium 1.7 mg/dL (1.9-2.7); Potassium 4.3 mmol/L (3.5-5.0); eGFR CKD-EPI 95.9 (>60)
[2021-04-13] MEDS: Aspirin EC 81 mg TAB.EC (enteric coated) PO SCH (08:23)
[2021-04-13] MEDS: Potassium Chlor 20 meq TAB.ER PO SCH (08:24)
[2021-04-13] MEDS ORDERED: Magnesium Sulfate IV 3 GM in NS 0.9% 100 ml BAG 100 ML IVPB ONE (10:30)
[2021-04-13 16:04] VITALS: BP 108/71
== END 2021-04-13 16:50 | DRG 871 ==
LOC: ED 09:14 → EDHOLD 09:14 → MEDTELE 20:26 → SUATTDRO 03-18 11:30 → ICU 03-18 11:58 → MED 03-20 18:10 → SSU 04-08 02:53
PROVIDERS: ADMIT Internal Medicine; ATTEND Hospitalist

== ENCOUNTER 2023-06-10 06:05 | Inpatient (IN) ==
[2023-06-10] MEDS: ceFAZolin 2 GM/50 ML BAG IV ONE (06:33)
[2023-06-10] MEDS ORDERED: Midazolam 5 mg/5 ml VIAL 1 mg/ml 5 ml VIAL (5 mg) ONE ×2 (07:01→09:25)
[2023-06-10] MEDS ORDERED: fentaNYL 100 mcg/2 ml 50 MCG/ML VIAL ONE (07:02)
[2023-06-10] MEDS ORDERED: Lidocaine 1% VIAL 10 MG/ML 30 ML VIAL ONE (07:02)
[2023-06-10] MEDS ORDERED: Iohexol 300 (CONTRAST) 10 ML SDV ONE (07:27)
[2023-06-10] MEDS ORDERED: Polyethyl Glycol/Propylene Gly OPHTH.SOLN BOTH EYES PRN (12:05)
[2023-06-10] MEDS: ceFAZolin 1 GM ADVAN 1 GM in NS 0.9% 50 ML 50 ML IVPB SCH (14:47)
[2023-06-10 17:41] LABS: Hematocrit 39.5 % (35-45); Hemoglobin 13.7 g/dL (11.5-14.3); Mean Corpuscular Hemoglobin 32.1 pg (27-33); Mean Corpuscular Hgb Conc 34.7 g/dL (31-36); Mean Corpuscular Volume 92.5 fL (80-97); Mean Platelet Volume 8.3 fL (7.5-11.2); Platelet Count 237 10^3/uL (150-450); Red Blood Count 4.27 10^6/uL (3.63-4.92); White Blood Count 11.9 10^3/uL (3.8-11.8)
[2023-06-10 18:49] LABS: Calcium 9.2 mg/dL (8.6-10.3); Creatinine, Serum 0.56 mg/dL (0.51-0.95); Potassium 4.1 mmol/L (3.5-5.0); eGFR CKD-EPI 91.6 (>60)
[2023-06-10 19:04] LABS: TSH Ultra Thyroid Stim Horm 10.13 mcIU/mL (0.34-5.60)
[2023-06-10 19:06] LABS: Free T4 0.73 ng/dL (0.61-1.12)
[2023-06-10] MEDS: Potassium Chlor 20 meq TAB.ER PO SCH (20:50)
[2023-06-11] MEDS: CRANBERRY FRUIT 450 MG PO SCH (08:28)
[2023-06-11] MEDS: CMC:Mirabegron 25 mg ER TAB (NF) PO SCH (08:29)
[2023-06-11] MEDS: CMCS: SitaGLIPtin 100 mg TAB (NF) PO SCH (11:05)
[2023-06-11] MEDS: NS 0.9% 1000 ml BAG 1,000 ML IV SCH (11:13)
[2023-06-11] MEDS: ceFAZolin 2 GM in NS PREMIX 2 GM/100 ML BAG IVPB ONE (11:13)
[2023-06-11] MEDS ORDERED: Midazolam 5 mg/5 ml VIAL 1 mg/ml 5 ml VIAL (5 mg) ONE ×2 (15:22→16:36)
[2023-06-11] MEDS ORDERED: Iohexol 300 (CONTRAST) 10 ML SDV ONE (15:22)
[2023-06-11] MEDS ORDERED: Lidocaine 1% VIAL 10 MG/ML 30 ML VIAL ONE (15:22)
[2023-06-11] MEDS ORDERED: fentaNYL 100 mcg/2 ml 50 MCG/ML VIAL ONE ×2 (15:22→16:43)
[2023-06-11] MEDS: fentaNYL 100 mcg/2 ml 50 MCG/ML VIAL IV SLOW PU ONE (16:17)
[2023-06-11] MEDS: Midazolam 10 mg/10 ml VIAL 1 mg/ml 10 ml VIAL (10 mg) IV SLOW PU ONE (16:18)
[2023-06-11] MEDS: ceFAZolin SYR FLUSH 1 GM/10 ML for pocket flush (cardiology) FLUSH ONE (17:17)
[2023-06-11] MEDS ORDERED: oxyCODONE/Acetamin 5/325 mg TAB PO PRN (18:36)
[2023-06-11] MEDS ORDERED: Magnesium Hydroxide LIQ 30 ML UDC PO PRN (18:39)
[2023-06-11] MEDS: ceFAZolin VIAL 1 GM in NS 0.9% 50 ML 50 ML IVPB SCH (20:51)
[2023-06-14 10:04] VITALS: BP 116/80
== END 2023-06-14 11:17 | disposition home or self-care (01) | DRG 262 ==
LOC: CHICATH 06:05 → MEDTELE 06:05
PROVIDERS: ADMIT Specialist; ATTEND Specialist
PROC: PACEGEN (ICD-10-PCS; 2023-06-10 07:15)